=== PATIENT | male | born 1955 | race Caucasian/White ===

== ENCOUNTER 2017-03-20 11:00 | Inpatient (IN) | payer MEDICARE, MEDICAID ==
--- NOTE | 2017-03-20 11:20 | ED Physician Chart ---
Chief Complaint/HPI - Patient Information Date Seen:: 03/20/17 Time Seen:: 11:04 Chief Complaint:: shortness of breath History of Present Illness:: 61-year-old male, history of HIV/AIDS, complains of acute, worsening, constant, moderate to severe, shortness of breath 5 days. Has associated cough and subjective fever. Denies numbness, tingling, abdominal pain, chest pain with palpitations, nausea, vomiting, diarrhea, gross hematuria, acute vision changes , headache. Allergies:: Allergies Allergy/AdvReac Type Severity Reaction Status Date / Time No Known Allergies Allergy Verified 03/20/17 11:19 Historian:: Patient Review:: Nurse's Note Reviewed Review of Systems - Review of Systems Other: Complete system review otherwise unremarkable except as noted in history of present illness. Past Medical History - Past Medical History Past Medical History: Other (HIV) Family History: None Social History: Non Smoker, No Alcohol, No Drug Use, Other Surgical History: None Psychiatricy History: None Medication: Reviewed Family Medical History - Family Member Father History Unknown: Yes Mother History Unknown: Yes Ethnicity: Non- Living Status: Hx Family Cancer: No Hx Family Coronary Artery Disease: No Hx Family Congestive Heart Failure: No Hx Family Hypertension: No Hx Family Stroke: No Hx Family Diabetes: Yes Hx Family Seizures: No Hx Family Dementia: No Hx Family AIDS: No Hx Family HIV: No Hx Family COPD: No Hx Family Hepatitis: No Hx Family Psychiatric Problems: No Hx Family Tuberculosis: No Physical Exam - Physical Examination Other:: INITIAL VITAL SIGNS: Reviewed by me GENERAL: Alert and interactive. No acute distress HEAD: Head is normocephalic and atraumatic EYES: EOMI. PERRL. No scleral icterus. No conjunctival injection ENT: Moist mucous membranes. NECK: Supple. No masses. Full range of motion RESPIRATORY: No tachypnea. Right middle lobe rhonchi. CV: Regular rate and rhythm. No murmurs, rubs, or gallops ABDOMEN: Soft, non-distended, non-tender. No guarding. No rebound. No masses. EXTREMITIES: No deformity. No cyanosis. No edema. SKIN: Warm and dry. No obvious rashes. NEUROLOGIC: Alert and oriented. Face is symmetric. Speech is normal. Moves all extremities equally. Motor and sensory distally intact. Labs/Radiology/EKG Results - Lab Results Results: Lab Results 03/20/17 03/20/17 03/20/17 Range/Units 11:41 11:41 11:41 WBC 5.2 D (4.8-10.8) Th/cmm RBC 4.13 L (4.30-5.70) Mil/cmm Hgb 12.3 L (13.2-17.3) gm/dL Hct 36.9 L D (39.0-49.0) % MCV 89.3 (80-99) fl MCH 29.7 (26.0-30.0) pg MCHC Differential 33.2 (28.0-36.0) pg RDW 14.8 (11.5-20.0) % Plt Count 130 L D (150-400) Th/cmm MPV 7.6 fl Neutrophils % 75.6 (40.0-80.0) % Lymphocytes % 15.7 L (20.0-50.0) % Monocytes % 7.6 (2.0-10.0) % Eosinophils % 0.6 (0.0-5.0) % Basophils % 0.5 (0.0-2.0) % Sodium 125 L (136-145) mEq/L Potassium 3.4 L (3.5-5.1) mEq/L Chloride 94 L (98-107) mEq/L Carbon Dioxide 27.2 (21.0-31.0) mEq/L Anion Gap 7.2 (7.0-16.0) BUN 26 H (7-25) mg/dL Creatinine 0.7 (0.7-1.3) mg/dL Est GFR ( Amer) > 60.0 (>90) ml/min Est GFR (Non-Af Amer) > 60.0 ml/min BUN/Creatinine Ratio 37.1 Glucose 91 (70-105) mg/dL Whole Bld Lactic Acid 1.05 (0.60-1.99) mmol/L Calcium 9.0 (8.6-10.3) mg/dL Total Bilirubin 0.7 (0.3-1.0) mg/dL AST 33 (13-39) U/L ALT 20 (7-52) U/L Alkaline Phosphatase 66 (34-104) U/L Total Protein 8.1 (6.0-8.3) gm/dL Albumin 3.0 L (4.2-5.5) gm/dL Globulin 5.1 gm/dL Albumin/Globulin Ratio 0.6 L (1.0-1.8) - Radiology Results Results: Single AP VIEW Portable Chest X-ray was interpreted independently and contemporaneously by Brit Tao MD: No cardiomegaly Normal mediastinum Right middle lobe infiltrates No pneumothorax No soft tissue or bony abnormalities - EKG Interpretations Comments:: 12-lead EKG Interpretation by Brit Tao MD: Normal Sinus Rhythm with ventricular rate of 98 beats per minute Normal axis Borderline shortened OR interval otherwise normal intervals No acute ST or T wave changes. No obvious STEMI Assessment - Assessment General Assessment: Critical Care Time: 30 minutes Treatments/Evaluations: Close monitoring and treatment of unstable vital signs, cardiorespiratory, and neurologic status, while maintaining tight balance of fluid, respiratory, and cardiac interventions. This time includes discussing the case with the patient and the patient's family. This time does not include all procedures stated elsewhere in this record. This time also includes reviewing old records, labs and radiological studies. This time includes examining and re-examining the patient. Additionally, this time also includes arranging care with admitting and consulting physicians. Critical Care Time: 30 minutes Excludes all billable procedures: Yes This condition life threatening/high prob of deterioration: Yes ED Septic Shock - . Is Septic Shock (SBP<90, OR Lactate>4 mmol\L) present?: No Reassessment (Disposition) - Reassessment Reassessment:: This is a 61-year-old male with history of AIDS. Presents with acute, worsening shortness of breath 1 week. X-ray consistent with right middle lobe pneumonia. Patient's blood pressure was borderline systolic 90 mmHg. His white blood cell count and lactic acid levels were within normal limits. However his heart rate was about 90 bpm and his temperature was slightly elevated at 99.9F. Patient is septic with right middle lobe pneumonia. He did receive 1.5 L of IV saline here in the ER. Also received IV antibiotics. He also received Solu-Medrol and breathing treatment. His shortness of breath did improve. Given his comorbidities of AIDS he will need admission for further workup and treatment. Discussed with admitting physician. Patient benefited further workup and treatment. Reassessment Condition:: Improved - Diagnosis Diagnosis:: Sepsis, right middle lobe pneumonia AIDS - Patient Disposition Discharge/Transfer:: Acute Care w/in this hosp Admitted to:: Telemetry Admitting Medical Physician:: Darrell Jo Time:: 12:34 Condition at Disposition:: Stable ED Discharge Plan - Patient Disposition Admit/Discharge/Transfer: Acute Care w/in this hosp
[2017-03-20] MEDS ORDERED: Albuterol/Ipratropium Neb 3 ML AERS HHN ONE ×2 (11:21→11:33)
[2017-03-20] MEDS ORDERED: Dexamethasone Sodium Phos 4 mg/mL Vial IVP STA (11:22)
[2017-03-20] MEDS ORDERED: Dexamethasone Sodium Phos 10 mg/mL PF Vial ONE (11:28)
[2017-03-20 11:59] LABS: % BASOPHILS 0.5 % (0.0-2.0); % EOSINOPHILS 0.6 % (0.0-5.0); % LYMPHOCYTES 15.7 % (20.0-50.0); % MONOCYTES 7.6 % (2.0-10.0); % NEUTROPHILS 75.6 % (40.0-80.0); HEMATOCRIT 36.9 % (39.0-49.0); HEMOGLOBIN 12.3 gm/dL (13.2-17.3); MEAN CELL VOLUME 89.3 fl (80-99); MEAN CORPUSCULAR HEMOGLOBIN 29.7 pg (26.0-30.0); MEAN CORPUSCULAR HGB CONC 33.2 pg (28.0-36.0); MEAN PLATELET VOLUME 7.6 fl; PLATELET COUNT 130 Th/cmm (150-400); RED BLOOD COUNT 4.13 Mil/cmm (4.30-5.70); RED CELL DISTRIBUTION WIDTH 14.8 % (11.5-20.0)
[2017-03-20 12:02] LABS: WHITE BLOOD COUNT 5.2 Th/cmm (4.8-10.8)
--- NOTE | 2017-03-20 12:02 | Diagnostic Imaging Report ---
CHEST X-RAY: AP view INDICATION: pain COMPARISON: None FINDINGS: Extensive right mid lung infiltrate and consolidation is noted. Chronic changes are seen with areas of subsegmental atelectasis versus scarring. Heart size is normal. Spinal scoliosis is noted with rightward convexity of the thoracic spine. IMPRESSION: Extensive right mid lung infiltrates and consolidative changes. Follow-up is recommended to ensure resolution.
[2017-03-20 12:17] LABS: INR 0.91 (0.5-1.4); PROTHROMBIN TIME (TEST) 9.5 SECONDS (9.5-11.5)
[2017-03-20 12:20] LABS: ALB/GLOB RATIO 0.6 (1.0-1.8); ALKALINE PHOSPHATASE 66 U/L (34-104); ANION GAP 7.2 (7.0-16.0); BILIRUBIN,TOTAL 0.7 mg/dL (0.3-1.0); BUN - UREA NITROGEN 26 mg/dL (7-25); BUN/CREATININE RATIO 37.1; CARBON DIOXIDE 27.2 mEq/L (21.0-31.0); CHLORIDE 94 mEq/L (98-107); CREATININE - SERUM 0.7 mg/dL (0.7-1.3); GLUCOSE 91 mg/dL (70-105); POTASSIUM SERUM 3.4 mEq/L (3.5-5.1); SGOT 33 U/L (13-39); SGPT/ALT 20 U/L (7-52); SODIUM SERUM 125 mEq/L (136-145); TROP I 0.01 ng/mL (0.01-0.05)
[2017-03-20] MEDS ORDERED: Sodium Chloride 0.9% 1,000 ML IV ONE (12:27)
[2017-03-20] MEDS ORDERED: Sodium Chloride 0.9% 500 ML IV ONE (12:28)
[2017-03-20] MEDS ORDERED: cefTRIAXone 1 GM in Sodium Chloride 0.9% 50 ML IV ONE (12:39)
[2017-03-20] MEDS: Azithromycin 500 MG in Sodium Chloride 0.9% 250 ML IV SCH (17:21)
[2017-03-20] MEDS: Sodium Chloride 0.9% 1,000 ML IV SCH (17:26)
--- NOTE | 2017-03-20 22:29 | Admit Criteria Form ---
Admit Criteria Forms - Admit Criteria Diagnosis: PNEUMONIA, COMMUNITY ACQUIRED Clinical Indications for Admission to Inpatient Care (Place ' X' for any and all applicable criteria): Admission to inpatient status for two midnights or more is indicated for ANY ONE of the following (1)(2)(3): [ ]I. Hypoxia [ ]II. Hemodynamic instability [ ]III. Altered mental status that is severe or persistent [ ]IV. Dehydration that is severe or persistent. [ ]V. Bacteremia [ ]. Moderate-risk or high-risk category patients (Pneumonia Severity Index ( PSI) class IV or V, or CURB-65 score of 3 or greater). [ ]VII. Intermediate-risk category patients (e.g., PSI class III or CURB-65 score 2) who do not improve with outpatient and observation care treatment [ ]VIII. Outpatient treatment failure as indicated by 1 or more of the following(9): [ ]a) Failure to respond to antibiotic (eg, resistant organism) [ ]b) Clinically significant adverse effects from medication (eg, vomiting) [ ]c) Complications of pneumonia (eg, empyema, bacteremia) [ ]d) Significant worsening of comorbid cond necessitating inpatient care (eg, chronic heart failure) [ ]IX. Appropriate diagnostic testing and treatment unavailable in outpatient or recovery facility (eg, testing or infection control measures unavailable) [ ]X. Respiratory finding (eg. tachypnea) that do not respond to outpatient observation care treatment [ ]XI. Complicated pleural effusions (eg, emphysema, exudative, loculated) [X ]XII. Immunocompromised patients (e.g., AIDS, chronic steroid use) at moderate or high risk based on clinical evaluation. Extended stay beyond goal length of stay may be needed for (20) [ ]a) Unclear diagnosis [ ]b) Pleural disease [ ]c) Severe pneumonia or treatment failure [ ]d) Respiratory failure [ ]e) New onset hyponatremia (serum Na concentration less than 135 mEq/L(mmol/ L) [ ]f) Clinically significant comorbid illness (eg, heart failure, atrial fibrillation with rapid heart rate, alcohol withdrawal, renal insufficiency)(34)(35) [ ]g) Comorbid acute exacerbation of COPD(36) [ ]h) Concomitant diagnosis of malignancy [ ]i) Concomitant altered mental status [ ]j) Culture-identified Gram-negative or antibiotic-resistant organism (eg, Pseudomonas, methicillin-resistant Staphylococcus aureus MRSA)(30) [ ]k) Healthcare-associated pneumonia (36) The original [facility] [employer] content created by [facility] has been revised. The portions of the content which have been revised are identified through the use of italic text or in bold, and [facility] has neither reviewed nor approved the modified material. All other unmodified content is copyright [facility]. Please see references footnoted in the original [facility] edition 2017 Admit Criteria Met?: Yes
[2017-03-21] MEDS: Sodium Chloride 0.9% 1,000 ML IV SCH ×3 (00:25→12:06)
[2017-03-21 01:34] LABS: URINE BILIRUBIN NEGATIVE (NEGATIVE); URINE COLOR YELLOW; URINE GLUCOSE (UA) NEGATIVE (NEGATIVE)
[2017-03-21 01:35] LABS: URINE BLOOD TRACE (NEGATIVE); URINE KETONE 15 mg/dL (NEGATIVE); URINE PROTEIN TRACE mg/dL (NEGATIVE)
[2017-03-21 01:36] LABS: URINE BACTERIA NONE SEEN /hpf (NONE SEEN); URINE EPITHELIAL CELLS NONE SEEN /lpf (FEW); URINE RBC 0-2 /hpf (0-5); URINE WBC NONE SEEN /hpf (0-5)
--- NOTE | 2017-03-21 02:44 | Consultation ---
Consult Note - Consult Note Service Date: 03/20/17 Consult Note: PHYSICIAN Consultation Note: Date of Admission: 03/20/17 Purpose of Consultation: Chief Complaint: Patient JACKIE STEWART JR was admitted to location Medical[facility] Unit I with PNA, SEPSIS, IMMUNO COMPROMISE. History of Present Illness: 61 y male with h/o HIV presented to the ER for cough and congestion for last 5 days, it was associated with shortness of breath. CXR revealed RML pneumonia. rocephin and Zithromax were started. He stated he had stopped taking his medications in sep 2016, as he could not she his HIV physician. He was hypoxic on presentation. Past Medical History: HIV. Allergies Allergy/AdvReac Type Severity Reaction Status Date / Time No Known Allergies Allergy Verified 03/20/17 11:19 Vital Signs Temp 97.5 F 03/21/17 00:00 Pulse 71 03/21/17 00:00 Resp 20 03/21/17 00:00 BP 123/52 03/21/17 00:00 Pulse Ox 91 03/21/17 00:00 Intake & Output 03/20/17 03/20/17 03/21/17 06:59 18:59 06:59 Intake Total 300 948.333 Output Total 300 Balance 0 948.333 Weight (lbs) 43.998 kg Intake: Intake, IV Amount 948.333 Azithromycin 500 mg In 250 Sodium Chloride 0.9% 250 ml @ 250 mls/hr IV Q24HR NAYE Rx#:[id number] Sodium Chloride 0.9% 1, 698.333 000 ml @ 100 mls/hr IV . Q10H NAYE Rx#:[id number] Oral 300 Output: Urine 300 Other: # Voids 2 # Bowel Movements 0 Laboratory Results - last 24 hr 03/21/17 01:15 Urine Source CLEAN C Urine Color YELLOW Urine Clarity CLEAR Urine pH 6.0 Ur Specific [place] 1.020 Urine Protein TRACE Urine Glucose (UA) NEGATIVE Urine Ketones 15 H Urine Blood TRACE Urine Nitrate NEGATIVE Urine Bilirubin NEGATIVE Urine Urobilinogen 4.0 H Ur Leukocyte Esterase NEGATIVE Urine RBC 0-2 H Urine WBC NONE SEEN Ur Epithelial Cells NONE SEEN Urine Bacteria NONE SEEN Home Medication Medication Instructions Recorded Type Sulfamethoxazole/Trimethopri 1 tab PO DAILY 11/08/14 History [Bactrim Ds 800 mg-160 mg*] Tenofovir Disoproxil Fumarate 300 mg PO DAILY 11/08/14 History [Viread] Current Medications Generic Name Dose Route Start Last Admin Trade Name Fretaylor PRN Reason Stop Dose Admin Azithromycin 500 mg/ Sodium 250 mls @ 250 mls/hr 03/20/17 15:47 03/20/17 19: 18 Chloride IV 05/19/17 15:46 Infused Q24HR NAYE Infusion Ceftriaxone Sodium 1 gm/ 50 mls @ 100 mls/hr 03/20/17 15:47 Sodium Chloride IV 05/19/17 15:46 Q24HR NAYE Sodium Chloride 1,000 mls @ 100 mls/hr 03/20/17 15:53 03/21/17 00:25 Nacl 0.9% IV 05/19/17 15:52 100 mls/hr .Q10H NAYE Administration Review of Systems: A 12 point ROS was reviewed with the pertinent positive and negatives noted in the HPI. Social History Smoking Status Former smoker Drug Use No Alcohol Use No Family Medical History Family Medical History Start: 03/20/17 15: 10 Freq: ONCE Status: Active Document 03/20/17 15:10 [employer] (Rec: 03/20/17 18:05 [facility] [id number] ) Family Medical History Mother Name: MIKAL QUEVEDO Living Status Hx Family Cancer No Hx Family Coronary Artery Disease No Hx Family Congestive Heart Failure No Hx Family Hypertension No Hx Family Stroke No Hx Family Diabetes Yes Hx Family Seizures No Hx Family Dementia No Hx Family AIDS No Hx Family HIV No Hx Family COPD No Hx Family Hepatitis No Hx Family Psychiatric Problems No Hx Family Tuberculosis No Father History Unknown Yes Physical Exam: General: Cachectic. No Acute Distress HEENT: EOMI Bilaterally, PERRLA Bilaterally, Head is normocephalic, atraumatic on inspection. Cardio: +S1/S2 Auscultated, RRR, no murmurs/rubs/gallops noted Respiratory:Crackles present on the right. Abdominal: Soft, Nondistended, Nontender to palpation x 4 quadrants Genital/Urinary: Extremities: No Edema noted in the lower extremities Neurological: Alert and Oriented x3, Cranial Nerves II-XII intact bilaterally, Gait Steady, No Focal Deficits noted. Assessment/Plan: 1. HIV. Advanced as he was on bactrim po for prophylaxis). He cannot recall his meds and t cell count or hiv viral load. 2. Pneumonia. r/o TB, r/o PCP ( he was on bactrim prophylaxis) 3. Protein Calorie malnutrition. 4. Respiratory insuffiiency. Abx, rocephin, zithromax. Add bactrim IV. please see CPOE. transfer to the TELE and airborne isolation. Prognosis is guarded. Signed, Héctor Go M.D. 229
[2017-03-21] MEDS: DEXTROSE IV SCH ×2 (04:12→08:52)
[2017-03-21] MEDS: SULFAMETHOXAZOLE IV SCH ×2 (04:12→08:52)
[2017-03-21] MEDS: TMP IV SCH ×2 (04:12→08:52)
[2017-03-21] MEDS ORDERED: [UNRECOGNIZED DRUG - OTHER] IV SCH (05:00)
[2017-03-21] MEDS ORDERED: SULFAMETHOXAZOLE IV SCH (05:00)
[2017-03-21] MEDS ORDERED: TRIMETHOPRIM IV SCH (05:00)
[2017-03-21 05:07] LABS: HCO3 24.4 mEq/L (20.0-26.0); pH 7.44 (7.35-7.45)
[2017-03-21 05:08] LABS: ABG SOURCE Arterial; ALLEN TEST P; BE(B) -0.6 mEq/L (-3.0-3.0); FIO2 21
--- NOTE | 2017-03-21 10:29 | Diagnostic Imaging Report ---
CHEST X-RAY: AP view INDICATION: Pneumonia COMPARISON: 03/20/2017 FINDINGS: Extensive right lung consolidative changes are seen involving the right upper lobe. Additional few patchy infiltrates are also noted. Left basal subsegmental atelectasis versus scarring is noted. Heart size is normal. IMPRESSION: Extensive right lung consolidative changes with additional superimposed infiltrates. Clinical correlation and follow-up is to ensure recommended to ensure resolution and rule out underlying neoplastic process.
[2017-03-21] MEDS: cefTRIAXone 1 GM in Sodium Chloride 0.9% 50 ML IV SCH ×2 (15:30→17:29)
--- NOTE | 2017-03-21 16:50 | History and Physical ---
History of Present Illness - HPI Chief Complaint: pt c/o increse weakness HPI: grsdual loss of appetite decrese in wt incresing sob Vital Signs: Last Vital Signs Temp 98.3 F 03/21/17 16:00 Pulse 72 03/21/17 16:00 Resp 19 03/21/17 16:00 BP 116/51 03/21/17 16:00 Pulse Ox 96 03/21/17 16:00 Past Medical History Cardiovascular: Report: Other (h/o hiv) Pulmonary: Report: No Pertinent Hx [employer]: Report: No Pertinent Hx, Peripheral neuropathy GI: Report: No Pertinent Hx Psych: Report: No Pertinent Hx, Anxiety Musculoskeletal: Report: No Pertinent Hx Rheumatologic: Report: No pertinent Hx Infectious Disease: Report: No Pertinent Hx Renal/: Report: No Pertinent Hx Endocrine: Report: No Pertinent Hx Dermatology: Report: No Pertinent Hx - Past Surgical History Past Surgical History: No pertinent Hx Family Medical History - Family Member Father Hx Family Cancer: No Hx Family Congestive Heart Failure: No Hx Family Hypertension: No Mother History Unknown: Yes Name:: MIKAL QUEVEDO Ethnicity: Non- Living Status: Hx Family Cancer: No Hx Family Coronary Artery Disease: No Hx Family Congestive Heart Failure: No Hx Family Hypertension: No Hx Family Stroke: No Hx Family Diabetes: Yes Hx Family Seizures: No Hx Family Dementia: No Hx Family AIDS: No Hx Family HIV: No Hx Family COPD: No Hx Family Hepatitis: No Hx Family Psychiatric Problems: No Hx Family Tuberculosis: No Social History Smoke: 1 pack per day, Quit Alcohol: Occassional Drugs: None Lives: Alone Domestic Violence: Negative Health Maintenance Health Maintenance: HIV (on bactrim and antiviral) - Medications Home Medications: Home Medication Medication Instructions Recorded Type Sulfamethoxazole/Trimethopri 1 tab PO DAILY 11/08/14 History [Bactrim Ds 800 mg-160 mg*] Tenofovir Disoproxil Fumarate 300 mg PO DAILY 11/08/14 History [Viread] - Allergies Allergies/Adverse Reactions: Allergies Allergy/AdvReac Type Severity Reaction Status Date / Time No Known Allergies Allergy Verified 03/20/17 11:19 Review of Systems - Review of Systems Constitutional: Report: Fever, Weakness Eyes: Denies: Pain, Vision Change, Conjunctivae Inflammation, Eyelid Inflammation, Redness, Other Respiratory: Report: Cough, Sputum, Wheezing Cardiovascular: Report: Chest Pain Gastrointestinal: Denies: Diarrhea Musculoskeletal: Report: Neck Pain, Shoulder Pain, Back Pain Skin: Denies: Lesions Neurological: Report: Weakness, Numbness, Incoordination Physical Exam - Physical Exam HEENT: Report: Ears Nose Throat Within Normal Limits Respiratory: Report: Clear to Auscultation of lung keenan, Breath Sounds are within normal limits Abdomen: Report: Bowel Sounds are within normal limits Back: Report: Inspection of back is within normal limits. Neuro/Psych: Report: CN II-XII intact - Lab Results All Lab Results last 24 hours: Laboratory Last Values WBC 5.2 Th/cmm (4.8-10.8) D 03/20/17 11:41 RBC 4.13 Mil/cmm (4.30-5.70) L 03/20/17 11:41 Hgb 12.3 gm/dL (13.2-17.3) L 03/20/17 11:41 Hct 36.9 % (39.0-49.0) L D 03/20/17 11:41 MCV 89.3 fl (80-99) 03/20/17 11:41 MCH 29.7 pg (26.0-30.0) 03/20/17 11:41 MCHC Differential 33.2 pg (28.0-36.0) 03/20/17 11:41 RDW 14.8 % (11.5-20.0) 03/20/17 11:41 Plt Count 130 Th/cmm (150-400) L D 03/20/17 11:41 MPV 7.6 fl 03/20/17 11:41 Neutrophils % 75.6 % (40.0-80.0) 03/20/17 11:41 Lymphocytes % 15.7 % (20.0-50.0) L 03/20/17 11:41 Monocytes % 7.6 % (2.0-10.0) 03/20/17 11:41 Eosinophils % 0.6 % (0.0-5.0) 03/20/17 11:41 Basophils % 0.5 % (0.0-2.0) 03/20/17 11:41 PT 9.5 SECONDS (9.5-11.5) 03/20/17 11:41 INR 0.91 (0.5-1.4) 03/20/17 11:41 PTT (Actin FS) 32.1 SECONDS (26.0-38.0) 03/20/17 11:41 Specimen Source Arterial 03/21/17 06:00 Sample Site R-R 03/21/17 06:00 pH 7.44 (7.35-7.45) 03/21/17 06:00 pCO2 34.0 mmHg (35.0-45.0) L 03/21/17 06:00 pO2 82.0 mmHg (80.0-100.0) 03/21/17 06:00 HCO3 24.4 mEq/L (20.0-26.0) 03/21/17 06:00 Base Excess -0.6 mEq/L (-3.0-3.0) 03/21/17 06:00 O2 Saturation 96.0 % (92.0-100.0) 03/21/17 06:00 Jovan Test P 03/21/17 06:00 Vent Rate NA 03/21/17 06:00 Inspired O2 21 03/21/17 06:00 Tidal Volume NA 03/21/17 06:00 PEEP NA 03/21/17 06:00 Pressure (ins/psv/peep) NA 03/21/17 06:00 Critical Value RPINEIRA 03/21/17 06:00 Sodium 125 mEq/L (136-145) L 03/20/17 11:41 Potassium 3.4 mEq/L (3.5-5.1) L 03/20/17 11:41 Chloride 94 mEq/L (98-107) L 03/20/17 11:41 Carbon Dioxide 27.2 mEq/L (21.0-31.0) 03/20/17 11:41 Anion Gap 7.2 (7.0-16.0) 03/20/17 11:41 BUN 26 mg/dL (7-25) H 03/20/17 11:41 Creatinine 0.7 mg/dL (0.7-1.3) 03/20/17 11:41 Est GFR ( Amer) > 60.0 ml/min (>90) 03/20/17 11:41 Est GFR (Non-Af Amer) > 60.0 ml/min 03/20/17 11:41 BUN/Creatinine Ratio 37.1 03/20/17 11:41 Glucose 91 mg/dL (70-105) 03/20/17 11:41 Whole Bld Lactic Acid 1.05 mmol/L (0.60-1.99) 03/20/17 11:41 Calcium 9.0 mg/dL (8.6-10.3) 03/20/17 11:41 Total Bilirubin 0.7 mg/dL (0.3-1.0) 03/20/17 11:41 AST 33 U/L (13-39) 03/20/17 11:41 ALT 20 U/L (7-52) 03/20/17 11:41 Alkaline Phosphatase 66 U/L (34-104) 03/20/17 11:41 Lactate Dehydrogenase 99 U/L (140-271) L 03/21/17 06:15 Troponin I 0.01 ng/mL (0.01-0.05) 03/20/17 11:41 B-Natriuretic Peptide 40.0 pg/mL (5.0-100.0) 03/20/17 11:41 Total Protein 8.1 gm/dL (6.0-8.3) 03/20/17 11:41 Albumin 3.0 gm/dL (4.2-5.5) L 03/20/17 11:41 Globulin 5.1 gm/dL 03/20/17 11:41 Albumin/Globulin Ratio 0.6 (1.0-1.8) L 03/20/17 11:41 Urine Source CLEAN C 03/21/17 01:15 Urine Color YELLOW 03/21/17 01:15 Urine Clarity CLEAR (CLEAR) 03/21/17 01:15 Urine pH 6.0 03/21/17 01:15 Ur Specific [place] 1.020 (1.005-1.030) 03/21/17 01:15 Urine Protein TRACE mg/dL (NEGATIVE) 03/21/17 01:15 Urine Glucose (UA) NEGATIVE mg/dL (NEGATIVE) 03/21/17 01:15 Urine Ketones 15 mg/dL (NEGATIVE) H 03/21/17 01:15 Urine Blood TRACE (NEGATIVE) 03/21/17 01:15 Urine Nitrate NEGATIVE (NEGATIVE) 03/21/17 01:15 Urine Bilirubin NEGATIVE (NEGATIVE) 03/21/17 01:15 Urine Urobilinogen 4.0 E.U./dL (0.2 - 1.0) H 03/21/17 01:15 Ur Leukocyte Esterase NEGATIVE (NEGATIVE) 03/21/17 01:15 Urine RBC 0-2 /hpf (0-5) H 03/21/17 01:15 Urine WBC NONE SEEN /hpf (0-5) 03/21/17 01:15 Ur Epithelial Cells NONE SEEN /lpf (FEW) 03/21/17 01:15 Urine Bacteria NONE SEEN /hpf (NONE SEEN) 03/21/17 01:15 HIV 1&2 Antibody Screen POSITIVE (NEG) H 03/21/17 06:15 Laboratory Results - last 24 hr 03/21/17 03/21/17 03/21/17 01:15 06:00 06:15 Specimen Source Arterial Sample Site R-R pH 7.44 pCO2 34.0 L pO2 82.0 HCO3 24.4 Base Excess -0.6 O2 Saturation 96.0 Jovan Test P Vent Rate NA Inspired O2 21 Tidal Volume NA PEEP NA Pressure (ins/psv/peep) NA Critical Value RPINEIRA Lactate Dehydrogenase 99 L Urine Source CLEAN C Urine Color YELLOW Urine Clarity CLEAR Urine pH 6.0 Ur Specific [place] 1.020 Urine Protein TRACE Urine Glucose (UA) NEGATIVE Urine Ketones 15 H Urine Blood TRACE Urine Nitrate NEGATIVE Urine Bilirubin NEGATIVE Urine Urobilinogen 4.0 H Ur Leukocyte Esterase NEGATIVE Urine RBC 0-2 H Urine WBC NONE SEEN Ur Epithelial Cells NONE SEEN Urine Bacteria NONE SEEN HIV 1&2 Antibody Screen 03/21/17 06:15 Specimen Source Sample Site pH pCO2 pO2 HCO3 Base Excess O2 Saturation Jovan Test Vent Rate Inspired O2 Tidal Volume PEEP Pressure (ins/psv/peep) Critical Value Lactate Dehydrogenase Urine Source Urine Color Urine Clarity Urine pH Ur Specific [place] Urine Protein Urine Glucose (UA) Urine Ketones Urine Blood Urine Nitrate Urine Bilirubin Urine Urobilinogen Ur Leukocyte Esterase Urine RBC Urine WBC Ur Epithelial Cells Urine Bacteria HIV 1&2 Antibody Screen POSITIVE H - Assessment Assessment: hiv active on bacrim pnumonia malnutrition resp insufficeincy - Plan Plan: as per id
[2017-03-21] MEDS: Azithromycin 500 MG in Sodium Chloride 0.9% 250 ML IV SCH (17:26)
--- NOTE | 2017-03-21 21:26 | Infectious Disease Prog Note ---
Infectious Disease Subjective - Review of Systems Service Date: 03/21/17 Events since last encounter: None. Subjective: Comfortable,not in distress. Infectious Disease Objective - Results Result Diagrams: 03/20/17 11:41 03/20/17 11:41 Recent Labs: Laboratory Last Values WBC 5.2 Th/cmm (4.8-10.8) D 03/20/17 11:41 RBC 4.13 Mil/cmm (4.30-5.70) L 03/20/17 11:41 Hgb 12.3 gm/dL (13.2-17.3) L 03/20/17 11:41 Hct 36.9 % (39.0-49.0) L D 03/20/17 11:41 MCV 89.3 fl (80-99) 03/20/17 11:41 MCH 29.7 pg (26.0-30.0) 03/20/17 11:41 MCHC Differential 33.2 pg (28.0-36.0) 03/20/17 11:41 RDW 14.8 % (11.5-20.0) 03/20/17 11:41 Plt Count 130 Th/cmm (150-400) L D 03/20/17 11:41 MPV 7.6 fl 03/20/17 11:41 Neutrophils % 75.6 % (40.0-80.0) 03/20/17 11:41 Lymphocytes % 15.7 % (20.0-50.0) L 03/20/17 11:41 Monocytes % 7.6 % (2.0-10.0) 03/20/17 11:41 Eosinophils % 0.6 % (0.0-5.0) 03/20/17 11:41 Basophils % 0.5 % (0.0-2.0) 03/20/17 11:41 PT 9.5 SECONDS (9.5-11.5) 03/20/17 11:41 INR 0.91 (0.5-1.4) 03/20/17 11:41 PTT (Actin FS) 32.1 SECONDS (26.0-38.0) 03/20/17 11:41 Specimen Source Arterial 03/21/17 06:00 Sample Site R-R 03/21/17 06:00 pH 7.44 (7.35-7.45) 03/21/17 06:00 pCO2 34.0 mmHg (35.0-45.0) L 03/21/17 06:00 pO2 82.0 mmHg (80.0-100.0) 03/21/17 06:00 HCO3 24.4 mEq/L (20.0-26.0) 03/21/17 06:00 Base Excess -0.6 mEq/L (-3.0-3.0) 03/21/17 06:00 O2 Saturation 96.0 % (92.0-100.0) 03/21/17 06:00 Jovan Test P 03/21/17 06:00 Vent Rate NA 03/21/17 06:00 Inspired O2 21 03/21/17 06:00 Tidal Volume NA 03/21/17 06:00 PEEP NA 03/21/17 06:00 Pressure (ins/psv/peep) NA 03/21/17 06:00 Critical Value RPINEIRA 03/21/17 06:00 Sodium 125 mEq/L (136-145) L 03/20/17 11:41 Potassium 3.4 mEq/L (3.5-5.1) L 03/20/17 11:41 Chloride 94 mEq/L (98-107) L 03/20/17 11:41 Carbon Dioxide 27.2 mEq/L (21.0-31.0) 03/20/17 11:41 Anion Gap 7.2 (7.0-16.0) 03/20/17 11:41 BUN 26 mg/dL (7-25) H 03/20/17 11:41 Creatinine 0.7 mg/dL (0.7-1.3) 03/20/17 11:41 Est GFR ( Amer) > 60.0 ml/min (>90) 03/20/17 11:41 Est GFR (Non-Af Amer) > 60.0 ml/min 03/20/17 11:41 BUN/Creatinine Ratio 37.1 03/20/17 11:41 Glucose 91 mg/dL (70-105) 03/20/17 11:41 Whole Bld Lactic Acid 1.05 mmol/L (0.60-1.99) 03/20/17 11:41 Calcium 9.0 mg/dL (8.6-10.3) 03/20/17 11:41 Total Bilirubin 0.7 mg/dL (0.3-1.0) 03/20/17 11:41 AST 33 U/L (13-39) 03/20/17 11:41 ALT 20 U/L (7-52) 03/20/17 11:41 Alkaline Phosphatase 66 U/L (34-104) 03/20/17 11:41 Lactate Dehydrogenase 99 U/L (140-271) L 03/21/17 06:15 Troponin I 0.01 ng/mL (0.01-0.05) 03/20/17 11:41 B-Natriuretic Peptide 40.0 pg/mL (5.0-100.0) 03/20/17 11:41 Total Protein 8.1 gm/dL (6.0-8.3) 03/20/17 11:41 Albumin 3.0 gm/dL (4.2-5.5) L 03/20/17 11:41 Globulin 5.1 gm/dL 03/20/17 11:41 Albumin/Globulin Ratio 0.6 (1.0-1.8) L 03/20/17 11:41 Urine Source CLEAN C 03/21/17 01:15 Urine Color YELLOW 03/21/17 01:15 Urine Clarity CLEAR (CLEAR) 03/21/17 01:15 Urine pH 6.0 03/21/17 01:15 Ur Specific [place] 1.020 (1.005-1.030) 03/21/17 01:15 Urine Protein TRACE mg/dL (NEGATIVE) 03/21/17 01:15 Urine Glucose (UA) NEGATIVE mg/dL (NEGATIVE) 03/21/17 01:15 Urine Ketones 15 mg/dL (NEGATIVE) H 03/21/17 01:15 Urine Blood TRACE (NEGATIVE) 03/21/17 01:15 Urine Nitrate NEGATIVE (NEGATIVE) 03/21/17 01:15 Urine Bilirubin NEGATIVE (NEGATIVE) 03/21/17 01:15 Urine Urobilinogen 4.0 E.U./dL (0.2 - 1.0) H 03/21/17 01:15 Ur Leukocyte Esterase NEGATIVE (NEGATIVE) 03/21/17 01:15 Urine RBC 0-2 /hpf (0-5) H 03/21/17 01:15 Urine WBC NONE SEEN /hpf (0-5) 03/21/17 01:15 Ur Epithelial Cells NONE SEEN /lpf (FEW) 03/21/17 01:15 Urine Bacteria NONE SEEN /hpf (NONE SEEN) 03/21/17 01:15 HIV 1&2 Antibody Screen POSITIVE (NEG) H 03/21/17 06:15 - Physical Exam Vitals and I&O: Vital Signs Temp 97.9 F 03/21/17 20:00 Pulse 69 03/21/17 20:00 Resp 18 03/21/17 20:00 BP 104/56 03/21/17 20:00 Pulse Ox 95 03/21/17 20:00 Intake & Output 03/21/17 03/21/17 03/22/17 06:59 18:59 06:59 Intake Total 3998.674 0375 Balance 2236.296 2247 Weight (lbs) 44.089 kg 43.998 kg Intake: Intake, IV Amount 453.384 5413 Azithromycin 500 mg In 250 Sodium Chloride 0.9% 250 ml @ 250 mls/hr IV Q24HR [facility] Rx#:[id number] Sodium Chloride 0.9% 1, 914.718 4978 000 ml @ 100 mls/hr IV . Q10H [facility] Rx#:[id number] Sulfamethoxazole/TMP 14 264 ml In Dextrose 5% 250 ml @ 176 mls/hr IV Q8H [facility] Rx#:[id number] Oral 300 1000 Other: # Voids 3 3 # Bowel Movements 1 2 Active Medications: Current Medications Azithromycin 500 mg/ Sodium (Chloride) 250 mls @ 250 mls/hr IV Q24HR [facility] Stop: 05/19/17 15:46 Last Admin: 03/21/17 17:26 Dose: 100 mls/hr Ceftriaxone Sodium 1 gm/ (Sodium Chloride) 50 mls @ 100 mls/hr IV Q24HR [facility] Stop: 05/19/17 15:46 Last Admin: 03/21/17 15:30 Dose: 100 mls/hr Sodium Chloride (Nacl 0.9%) 1,000 mls @ 100 mls/hr IV .Q10H [facility] Stop: 05/19/17 15:52 Last Admin: 03/21/17 12:06 Dose: 100 mls/hr Trimethoprim/Sulfamethoxazole (14 ml/ Dextrose) 264 mls @ 176 mls/hr IV Q8H [facility] Stop: 05/20/17 03:59 Last Infusion: 03/21/17 11:00 Dose: Infused Miscellaneous (Sulfamethoxazole/Trimethopri [Bactrim Ds 800 Mg-160 Mg*]) 1 tab PO DAILY [facility] Stop: 05/21/17 08:59 Miscellaneous (Tenofovir Disoproxil Fumarate [Viread]) 300 mg PO DAILY [facility] Stop: 05/21/17 08:59 General: no acute distress, cachectic HEENT: atraumatic, normocephalic, PERRLA, EOMI, moist mucous membrane Neck: supple, no thyromegaly Cardiovascular: S1S2, regular, no systolic murmur, no thrills, no gallops Lungs: clear to percussion, crackles (on right ) Abdomen: soft, bowel sounds, no tender, no distended, no mass, no hepatomegaly, no splenomegaly, no ascites, no guarding Extremities: no cyanosis, no clubbing, no edema Neurological: awake, alert, oriented, CN 2-12 intact Skin: intact - Procedures Procedures: Procedures Procedure Code Date INSERT PICC CATH [id number] 11/08/14 VENOUS CATHETERIZATION NEC 38.93 11/08/14 Infectious Disease Assmt/Plan - Problem List Patient Problems: All Active Problems Flu-like symptoms (Acute) R68.89 PICC (peripherally inserted central catheter) removal (Acute) Z45.2 - Assessment Assessment: Assessment/Plan: 1. HIV. Advanced as he was on bactrim po for prophylaxis). He cannot recall his meds and t cell count or hiv viral load. 2. Pneumonia. r/o TB, r/o PCP ( he was on bactrim prophylaxis), CAP. Atypical pneumonia. 3. Protein Calorie malnutrition. 4. Respiratory insuffiiency. Abx, rocephin, zithromax. bactrim IV. Start IV fluid. please see CPOE. Prognosis is guarded.
[2017-03-21] MEDS ORDERED: Sodium Chloride 0.9% 1,000 ML IV SCH (21:31)
[2017-03-22] MEDS: DEXTROSE IV SCH ×4 (00:59→20:20)
[2017-03-22] MEDS: TMP IV SCH ×4 (00:59→20:20)
[2017-03-22] MEDS: SULFAMETHOXAZOLE IV SCH ×4 (00:59→20:20)
[2017-03-22] MEDS ORDERED: TRIMETHOPRIM PO SCH (09:00)
[2017-03-22] MEDS ORDERED: SULFAMETHOXAZOLE PO SCH (09:00)
[2017-03-22] MEDS ORDERED: [UNRECOGNIZED DRUG - OTHER] PO SCH (09:00)
[2017-03-22] MEDS ORDERED: TENOFOVIR DISOPROXIL FUMARATE 300 MG PO SCH (09:00)
--- NOTE | 2017-03-22 12:56 | General Progress Note ---
Subjective - Review of Systems Events since last encounter: patient in no distress Objective - Results Result Diagrams: 03/20/17 11:41 03/20/17 11:41 Recent Labs: Laboratory Last Values WBC 5.2 Th/cmm (4.8-10.8) D 03/20/17 11:41 RBC 4.13 Mil/cmm (4.30-5.70) L 03/20/17 11:41 Hgb 12.3 gm/dL (13.2-17.3) L 03/20/17 11:41 Hct 36.9 % (39.0-49.0) L D 03/20/17 11:41 MCV 89.3 fl (80-99) 03/20/17 11:41 MCH 29.7 pg (26.0-30.0) 03/20/17 11:41 MCHC Differential 33.2 pg (28.0-36.0) 03/20/17 11:41 RDW 14.8 % (11.5-20.0) 03/20/17 11:41 Plt Count 130 Th/cmm (150-400) L D 03/20/17 11:41 MPV 7.6 fl 03/20/17 11:41 Neutrophils % 75.6 % (40.0-80.0) 03/20/17 11:41 Lymphocytes % 15.7 % (20.0-50.0) L 03/20/17 11:41 Monocytes % 7.6 % (2.0-10.0) 03/20/17 11:41 Eosinophils % 0.6 % (0.0-5.0) 03/20/17 11:41 Basophils % 0.5 % (0.0-2.0) 03/20/17 11:41 PT 9.5 SECONDS (9.5-11.5) 03/20/17 11:41 INR 0.91 (0.5-1.4) 03/20/17 11:41 PTT (Actin FS) 32.1 SECONDS (26.0-38.0) 03/20/17 11:41 Specimen Source Arterial 03/21/17 06:00 Sample Site R-R 03/21/17 06:00 pH 7.44 (7.35-7.45) 03/21/17 06:00 pCO2 34.0 mmHg (35.0-45.0) L 03/21/17 06:00 pO2 82.0 mmHg (80.0-100.0) 03/21/17 06:00 HCO3 24.4 mEq/L (20.0-26.0) 03/21/17 06:00 Base Excess -0.6 mEq/L (-3.0-3.0) 03/21/17 06:00 O2 Saturation 96.0 % (92.0-100.0) 03/21/17 06:00 Jovan Test P 03/21/17 06:00 Vent Rate NA 03/21/17 06:00 Inspired O2 21 03/21/17 06:00 Tidal Volume NA 03/21/17 06:00 PEEP NA 03/21/17 06:00 Pressure (ins/psv/peep) NA 03/21/17 06:00 Critical Value RPINEIRA 03/21/17 06:00 Sodium 125 mEq/L (136-145) L 03/20/17 11:41 Potassium 3.4 mEq/L (3.5-5.1) L 03/20/17 11:41 Chloride 94 mEq/L (98-107) L 03/20/17 11:41 Carbon Dioxide 27.2 mEq/L (21.0-31.0) 03/20/17 11:41 Anion Gap 7.2 (7.0-16.0) 03/20/17 11:41 BUN 26 mg/dL (7-25) H 03/20/17 11:41 Creatinine 0.7 mg/dL (0.7-1.3) 03/20/17 11:41 Est GFR ( Amer) > 60.0 ml/min (>90) 03/20/17 11:41 Est GFR (Non-Af Amer) > 60.0 ml/min 03/20/17 11:41 BUN/Creatinine Ratio 37.1 03/20/17 11:41 Glucose 91 mg/dL (70-105) 03/20/17 11:41 Whole Bld Lactic Acid 1.05 mmol/L (0.60-1.99) 03/20/17 11:41 Calcium 9.0 mg/dL (8.6-10.3) 03/20/17 11:41 Total Bilirubin 0.7 mg/dL (0.3-1.0) 03/20/17 11:41 AST 33 U/L (13-39) 03/20/17 11:41 ALT 20 U/L (7-52) 03/20/17 11:41 Alkaline Phosphatase 66 U/L (34-104) 03/20/17 11:41 Lactate Dehydrogenase 99 U/L (140-271) L 03/21/17 06:15 Troponin I 0.01 ng/mL (0.01-0.05) 03/20/17 11:41 B-Natriuretic Peptide 40.0 pg/mL (5.0-100.0) 03/20/17 11:41 Total Protein 8.1 gm/dL (6.0-8.3) 03/20/17 11:41 Albumin 3.0 gm/dL (4.2-5.5) L 03/20/17 11:41 Globulin 5.1 gm/dL 03/20/17 11:41 Albumin/Globulin Ratio 0.6 (1.0-1.8) L 03/20/17 11:41 Urine Source CLEAN C 03/21/17 01:15 Urine Color YELLOW 03/21/17 01:15 Urine Clarity CLEAR (CLEAR) 03/21/17 01:15 Urine pH 6.0 03/21/17 01:15 Ur Specific [place] 1.020 (1.005-1.030) 03/21/17 01:15 Urine Protein TRACE mg/dL (NEGATIVE) 03/21/17 01:15 Urine Glucose (UA) NEGATIVE mg/dL (NEGATIVE) 03/21/17 01:15 Urine Ketones 15 mg/dL (NEGATIVE) H 03/21/17 01:15 Urine Blood TRACE (NEGATIVE) 03/21/17 01:15 Urine Nitrate NEGATIVE (NEGATIVE) 03/21/17 01:15 Urine Bilirubin NEGATIVE (NEGATIVE) 03/21/17 01:15 Urine Urobilinogen 4.0 E.U./dL (0.2 - 1.0) H 03/21/17 01:15 Ur Leukocyte Esterase NEGATIVE (NEGATIVE) 03/21/17 01:15 Urine RBC 0-2 /hpf (0-5) H 03/21/17 01:15 Urine WBC NONE SEEN /hpf (0-5) 03/21/17 01:15 Ur Epithelial Cells NONE SEEN /lpf (FEW) 03/21/17 01:15 Urine Bacteria NONE SEEN /hpf (NONE SEEN) 03/21/17 01:15 HIV 1&2 Antibody Screen POSITIVE (NEG) H 03/21/17 06:15 - Physical Exam Vitals and I&O: Vital Signs Temp 98.5 F 03/22/17 07:41 Pulse 81 03/22/17 07:41 Resp 17 03/22/17 12:00 BP 122/46 03/22/17 07:41 Pulse Ox 98 03/22/17 07:41 Intake & Output 03/21/17 03/22/17 03/22/17 18:59 06:59 18:59 Intake Total 2269 264 264 Balance 2269 264 264 Weight (lbs) 43.998 kg 46.04 kg Intake: Intake, IV Amount 1269 264 264 Sodium Chloride 0.9% 1, 1005 000 ml @ 100 mls/hr IV . Q10H [facility] Rx#:[id number] Sulfamethoxazole/TMP 14 264 264 264 ml In Dextrose 5% 250 ml @ 176 mls/hr IV Q8H [facility] Rx#:[id number] Oral 1000 Other: # Voids 3 # Bowel Movements 2 Active Medications: Current Medications Azithromycin 500 mg/ Sodium (Chloride) 250 mls @ 250 mls/hr IV Q24HR [facility] Stop: 05/19/17 15:46 Last Admin: 03/21/17 17:26 Dose: 100 mls/hr Ceftriaxone Sodium 1 gm/ (Sodium Chloride) 50 mls @ 100 mls/hr IV Q24HR [facility] Stop: 05/19/17 15:46 Last Admin: 03/21/17 15:30 Dose: 100 mls/hr Trimethoprim/Sulfamethoxazole (14 ml/ Dextrose) 264 mls @ 176 mls/hr IV Q8H [facility] Stop: 05/20/17 03:59 Last Admin: 03/22/17 12:44 Dose: 176 mls/hr Sodium Chloride (Nacl 0.9%) 1,000 mls @ 50 mls/hr IV .Q20H [facility] Stop: 05/20/17 21:30 Last Admin: 03/21/17 23:37 Dose: 50 mls/hr Miscellaneous (Tenofovir Disoproxil Fumarate [Viread]) 300 mg PO DAILY [facility] Stop: 05/21/17 08:59 General: No acute distress HEENT: Atraumatic Neck: Supple, no Thyromegaly - Procedures Procedures: Procedures Procedure Code Date INSERT PICC CATH [id number] 11/08/14 VENOUS CATHETERIZATION NEC 38.93 11/08/14 Assessment/Plan - Problem List Patient Problems: All Active Problems Flu-like symptoms (Acute) R68.89 PICC (peripherally inserted central catheter) removal (Acute) Z45.2 - Plan Plan: cpm Nutritional Asmnt/Malnutr-PDOC - Dietary Evaluation Malnutrition Findings (Please click <Entered> for more info): Nutritional Asmnt/Malnutrition Start: 03/22/17 11: 47 Text: Status: Complete Freq: Document 03/22/17 11:47 GSUN (Rec: 03/22/17 12:16 GSUN [email or web address]) Nutritional Asmnt/Malnutrition Patient General Information Nutritional Screening High Risk Screening Diagnosis HIV, PNA, protein calorie malnutrition, rspiratory insufficiency Pertinent Medical Hx/Surgical Hx HIV Subjective Information 61 year old male. Pt is on airborne isolation, RN Ramonita recommended disposable trays, explained to pt, FNS notified . Pt reported UBW 120lb, weight loss to CBW ~100lb due to poor PO intake from having oral thrush. Avg PO intake 95% of meals since adm, meeting nutritional needs. Discussed weight status with pt, encouraged meals, pt understood. RN denied nutritional concerns at this time. Pt stated good appetite. Pt appeared overall thin, no severe wasting noted. PT is edentulous, denied difficulties chewing/ swallowing. Current Diet Order/ Nutrition Support Regular Pertinent Medications Nacl 0.9% Pertinent Labs Reviewed. Nutritional Hx/Data Height 1.6 m Height (Calculated Centimeters) 160.0 Current Weight (lbs) 46.04 kg Weight (Calculated Kilograms) 46.0 Weight (Calculated Grams) 08792.6 Usual body Weight (lbs) 120 [place] Body Weight 124 Recent Weight Change Yes Weight Status Underweight GI Symptoms Food Allergies No Skin Integrity/Comment: [place] 18. Current %PO Good (75-100%) Estimated Nutritional Goals Calories/Kcals/Kg IBW 124lb/56.4kg Kcals Calculated 1692-1974kcal (30-35kcal/kg) Protein g/kg: IBW Protein Calculated 79-90g (1.4-1.6g/kg) Fluid: ml 1692-1974ml (1ml/kcal) Nutritional Problem 1. Problem Problem Increased kcal and prot needs related to Etiology hypermetabolic state, weight loss, weight status aeb Signs/Symptoms: pneumonia, HIV/AIDS, pt report UBW 120lb currently ~100lb, BMI <18.5 Intervention/Recommendation Comments 1. Continue with current diet order. Avg PO intake is adequate. 2. Monitor weight. Pt BMI <18. 5, UBW 120lb, recent weight loss due to poor PO related to oral thrush. 3. FNS will provide disposable trays. Expected Outcomes/Goals Expected Outcomes/Goals 1. PO intake conitnue to meet at least 75% of estimated nutritional needs.
[2017-03-22] MEDS: Azithromycin 500 MG in Sodium Chloride 0.9% 250 ML IV SCH (16:00)
[2017-03-22] MEDS ORDERED: Albuterol Nebulizer 2.5mg/3mL HHN SCH (21:00)
[2017-03-22] MEDS: Albuterol Nebulizer 2.5mg/3mL HHN PRN (21:04)
[2017-03-23] MEDS: SULFAMETHOXAZOLE IV SCH ×2 (05:22→19:51)
[2017-03-23] MEDS: DEXTROSE IV SCH ×2 (05:22→19:51)
[2017-03-23] MEDS: TMP IV SCH ×2 (05:22→19:51)
[2017-03-23] MEDS: Albuterol Nebulizer 2.5mg/3mL HHN PRN ×2 (06:59→10:43)
[2017-03-23] MEDS: cefTRIAXone 1 GM in Sodium Chloride 0.9% 50 ML IV SCH (08:39)
--- NOTE | 2017-03-23 10:26 | General Progress Note ---
Subjective - Review of Systems Events since last encounter: increased weakness loss of appetite Objective - Results Result Diagrams: 03/20/17 11:41 03/20/17 11:41 Recent Labs: Laboratory Last Values WBC 5.2 Th/cmm (4.8-10.8) D 03/20/17 11:41 RBC 4.13 Mil/cmm (4.30-5.70) L 03/20/17 11:41 Hgb 12.3 gm/dL (13.2-17.3) L 03/20/17 11:41 Hct 36.9 % (39.0-49.0) L D 03/20/17 11:41 MCV 89.3 fl (80-99) 03/20/17 11:41 MCH 29.7 pg (26.0-30.0) 03/20/17 11:41 MCHC Differential 33.2 pg (28.0-36.0) 03/20/17 11:41 RDW 14.8 % (11.5-20.0) 03/20/17 11:41 Plt Count 130 Th/cmm (150-400) L D 03/20/17 11:41 MPV 7.6 fl 03/20/17 11:41 Neutrophils % 75.6 % (40.0-80.0) 03/20/17 11:41 Lymphocytes % 15.7 % (20.0-50.0) L 03/20/17 11:41 Monocytes % 7.6 % (2.0-10.0) 03/20/17 11:41 Eosinophils % 0.6 % (0.0-5.0) 03/20/17 11:41 Basophils % 0.5 % (0.0-2.0) 03/20/17 11:41 PT 9.5 SECONDS (9.5-11.5) 03/20/17 11:41 INR 0.91 (0.5-1.4) 03/20/17 11:41 PTT (Actin FS) 32.1 SECONDS (26.0-38.0) 03/20/17 11:41 Specimen Source Arterial 03/21/17 06:00 Sample Site R-R 03/21/17 06:00 pH 7.44 (7.35-7.45) 03/21/17 06:00 pCO2 34.0 mmHg (35.0-45.0) L 03/21/17 06:00 pO2 82.0 mmHg (80.0-100.0) 03/21/17 06:00 HCO3 24.4 mEq/L (20.0-26.0) 03/21/17 06:00 Base Excess -0.6 mEq/L (-3.0-3.0) 03/21/17 06:00 O2 Saturation 96.0 % (92.0-100.0) 03/21/17 06:00 Jovan Test P 03/21/17 06:00 Vent Rate NA 03/21/17 06:00 Inspired O2 21 03/21/17 06:00 Tidal Volume NA 03/21/17 06:00 PEEP NA 03/21/17 06:00 Pressure (ins/psv/peep) NA 03/21/17 06:00 Critical Value RPINEIRA 03/21/17 06:00 Sodium 125 mEq/L (136-145) L 03/20/17 11:41 Potassium 3.4 mEq/L (3.5-5.1) L 03/20/17 11:41 Chloride 94 mEq/L (98-107) L 03/20/17 11:41 Carbon Dioxide 27.2 mEq/L (21.0-31.0) 03/20/17 11:41 Anion Gap 7.2 (7.0-16.0) 03/20/17 11:41 BUN 26 mg/dL (7-25) H 03/20/17 11:41 Creatinine 0.7 mg/dL (0.7-1.3) 03/20/17 11:41 Est GFR ( Amer) > 60.0 ml/min (>90) 03/20/17 11:41 Est GFR (Non-Af Amer) > 60.0 ml/min 03/20/17 11:41 BUN/Creatinine Ratio 37.1 03/20/17 11:41 Glucose 91 mg/dL (70-105) 03/20/17 11:41 Whole Bld Lactic Acid 1.05 mmol/L (0.60-1.99) 03/20/17 11:41 Calcium 9.0 mg/dL (8.6-10.3) 03/20/17 11:41 Total Bilirubin 0.7 mg/dL (0.3-1.0) 03/20/17 11:41 AST 33 U/L (13-39) 03/20/17 11:41 ALT 20 U/L (7-52) 03/20/17 11:41 Alkaline Phosphatase 66 U/L (34-104) 03/20/17 11:41 Lactate Dehydrogenase 99 U/L (140-271) L 03/21/17 06:15 Troponin I 0.01 ng/mL (0.01-0.05) 03/20/17 11:41 B-Natriuretic Peptide 40.0 pg/mL (5.0-100.0) 03/20/17 11:41 Total Protein 8.1 gm/dL (6.0-8.3) 03/20/17 11:41 Albumin 3.0 gm/dL (4.2-5.5) L 03/20/17 11:41 Globulin 5.1 gm/dL 03/20/17 11:41 Albumin/Globulin Ratio 0.6 (1.0-1.8) L 03/20/17 11:41 Urine Source CLEAN C 03/21/17 01:15 Urine Color YELLOW 03/21/17 01:15 Urine Clarity CLEAR (CLEAR) 03/21/17 01:15 Urine pH 6.0 03/21/17 01:15 Ur Specific [place] 1.020 (1.005-1.030) 03/21/17 01:15 Urine Protein TRACE mg/dL (NEGATIVE) 03/21/17 01:15 Urine Glucose (UA) NEGATIVE mg/dL (NEGATIVE) 03/21/17 01:15 Urine Ketones 15 mg/dL (NEGATIVE) H 03/21/17 01:15 Urine Blood TRACE (NEGATIVE) 03/21/17 01:15 Urine Nitrate NEGATIVE (NEGATIVE) 03/21/17 01:15 Urine Bilirubin NEGATIVE (NEGATIVE) 03/21/17 01:15 Urine Urobilinogen 4.0 E.U./dL (0.2 - 1.0) H 03/21/17 01:15 Ur Leukocyte Esterase NEGATIVE (NEGATIVE) 03/21/17 01:15 Urine RBC 0-2 /hpf (0-5) H 03/21/17 01:15 Urine WBC NONE SEEN /hpf (0-5) 03/21/17 01:15 Ur Epithelial Cells NONE SEEN /lpf (FEW) 03/21/17 01:15 Urine Bacteria NONE SEEN /hpf (NONE SEEN) 03/21/17 01:15 Absolute CD4 Count SEE REF. LAB REPORT 03/21/17 06:15 HIV 1&2 Antibody Screen POSITIVE (NEG) H 03/21/17 06:15 - Physical Exam Vitals and I&O: Vital Signs Temp 97.8 F 03/23/17 08:09 Pulse 101 03/23/17 08:09 Resp 18 03/23/17 08:09 BP 100/54 03/23/17 08:09 Pulse Ox 93 03/23/17 08:09 Intake & Output 03/22/17 03/23/17 03/23/17 18:59 06:59 18:59 Intake Total 768 264 280 Balance 768 264 280 Weight (lbs) 45.813 kg 44.996 kg 45.359 kg Intake: Intake, IV Amount 528 264 Sulfamethoxazole/TMP 14 528 264 ml In Dextrose 5% 250 ml @ 176 mls/hr IV Q8H [facility] Rx#:[id number] Oral 240 280 Other: # Voids 3 Active Medications: Current Medications Albuterol Sulfate (Albuterol 2.5mg/3ml Neb Ud) 2.5 mg HHN Q4H PRN PRN Reason: Cough Stop: 05/21/17 20:59 Last Admin: 03/23/17 06:59 Dose: 2.5 mg Azithromycin 500 mg/ Sodium (Chloride) 250 mls @ 250 mls/hr IV Q24HR [facility] Stop: 05/19/17 15:46 Last Admin: 03/22/17 16:00 Dose: 100 mls/hr Trimethoprim/Sulfamethoxazole (14 ml/ Dextrose) 264 mls @ 176 mls/hr IV Q8H [facility] Stop: 05/20/17 03:59 Last Admin: 03/23/17 05:22 Dose: 176 mls/hr Sodium Chloride (Nacl 0.9%) 1,000 mls @ 50 mls/hr IV .Q20H [facility] Stop: 05/20/17 21:30 Last Admin: 03/21/17 23:37 Dose: 50 mls/hr Ceftriaxone Sodium 1 gm/ (Sodium Chloride) 50 mls @ 100 mls/hr IV Q24HR [facility] Stop: 05/22/17 07:59 Last Admin: 03/23/17 08:39 Dose: 100 mls/hr Miscellaneous (Tenofovir Disoproxil Fumarate [Viread]) 300 mg PO DAILY [facility] Stop: 05/21/17 08:59 General: No acute distress HEENT: Atraumatic Neck: Supple - Procedures Procedures: Procedures Procedure Code Date INSERT PICC CATH 27132 11/08/14 VENOUS CATHETERIZATION NEC 38.93 11/08/14 Assessment/Plan - Problem List Patient Problems: All Active Problems Flu-like symptoms (Acute) R68.89 PICC (peripherally inserted central catheter) removal (Acute) Z45.2 - Assessment Assessment: hiv active on bacrim pnumonia malnutrition resp insufficeincy - Plan Plan: as per id Nutritional Asmnt/Malnutr-PDOC - Dietary Evaluation Malnutrition Findings (Please click <Entered> for more info): Nutritional Asmnt/Malnutrition Start: 03/22/17 11: 47 Text: Status: Complete Freq: Document 03/22/17 11:47 GSUN (Rec: 03/22/17 12:16 GSUN [place] [id number]) Nutritional Asmnt/Malnutrition Patient General Information Nutritional Screening High Risk Screening Diagnosis HIV, PNA, protein calorie malnutrition, rspiratory insufficiency Pertinent Medical Hx/Surgical Hx HIV Subjective Information 61 year old male. Pt is on airborne isolation, RN Ramonita recommended disposable trays, explained to pt, FNS notified . Pt reported UBW 120lb, weight loss to CBW ~100lb due to poor PO intake from having oral thrush. Avg PO intake 95% of meals since adm, meeting nutritional needs. Discussed weight status with pt, encouraged meals, pt understood. RN denied nutritional concerns at this time. Pt stated good appetite. Pt appeared overall thin, no severe wasting noted. PT is edentulous, denied difficulties chewing/ swallowing. Current Diet Order/ Nutrition Support Regular Pertinent Medications Nacl 0.9% Pertinent Labs Reviewed. Nutritional Hx/Data Height 1.6 m Height (Calculated Centimeters) 160.0 Current Weight (lbs) 46.04 kg Weight (Calculated Kilograms) 46.0 Weight (Calculated Grams) 18652.6 Usual body Weight (lbs) 120 [place] Body Weight 124 Recent Weight Change Yes Weight Status Underweight GI Symptoms Food Allergies No Skin Integrity/Comment: Malick 18. Current %PO Good (75-100%) Estimated Nutritional Goals Calories/Kcals/Kg IBW 124lb/56.4kg Kcals Calculated 1692-1974kcal (30-35kcal/kg) Protein g/kg: IBW Protein Calculated 79-90g (1.4-1.6g/kg) Fluid: ml 1692-1974ml (1ml/kcal) Nutritional Problem 1. Problem Problem Increased kcal and prot needs related to Etiology hypermetabolic state, weight loss, weight status aeb Signs/Symptoms: pneumonia, HIV/AIDS, pt report UBW 120lb currently ~100lb, BMI <18.5 Intervention/Recommendation Comments 1. Continue with current diet order. Avg PO intake is adequate. 2. Monitor weight. Pt BMI <18. 5, UBW 120lb, recent weight loss due to poor PO related to oral thrush. 3. FNS will provide disposable trays. Expected Outcomes/Goals Expected Outcomes/Goals 1. PO intake conitnue to meet at least 75% of estimated nutritional needs.
--- NOTE | 2017-03-23 11:52 | Infectious Disease Prog Note ---
Infectious Disease Subjective - Review of Systems Service Date: 03/23/17 Events since last encounter: None. Subjective: Comfortable,not in distress. Infectious Disease Objective - Results Result Diagrams: 03/20/17 11:41 03/20/17 11:41 Recent Labs: Laboratory Last Values WBC 5.2 Th/cmm (4.8-10.8) D 03/20/17 11:41 RBC 4.13 Mil/cmm (4.30-5.70) L 03/20/17 11:41 Hgb 12.3 gm/dL (13.2-17.3) L 03/20/17 11:41 Hct 36.9 % (39.0-49.0) L D 03/20/17 11:41 MCV 89.3 fl (80-99) 03/20/17 11:41 MCH 29.7 pg (26.0-30.0) 03/20/17 11:41 MCHC Differential 33.2 pg (28.0-36.0) 03/20/17 11:41 RDW 14.8 % (11.5-20.0) 03/20/17 11:41 Plt Count 130 Th/cmm (150-400) L D 03/20/17 11:41 MPV 7.6 fl 03/20/17 11:41 Neutrophils % 75.6 % (40.0-80.0) 03/20/17 11:41 Lymphocytes % 15.7 % (20.0-50.0) L 03/20/17 11:41 Monocytes % 7.6 % (2.0-10.0) 03/20/17 11:41 Eosinophils % 0.6 % (0.0-5.0) 03/20/17 11:41 Basophils % 0.5 % (0.0-2.0) 03/20/17 11:41 PT 9.5 SECONDS (9.5-11.5) 03/20/17 11:41 INR 0.91 (0.5-1.4) 03/20/17 11:41 PTT (Actin FS) 32.1 SECONDS (26.0-38.0) 03/20/17 11:41 Specimen Source Arterial 03/21/17 06:00 Sample Site R-R 03/21/17 06:00 pH 7.44 (7.35-7.45) 03/21/17 06:00 pCO2 34.0 mmHg (35.0-45.0) L 03/21/17 06:00 pO2 82.0 mmHg (80.0-100.0) 03/21/17 06:00 HCO3 24.4 mEq/L (20.0-26.0) 03/21/17 06:00 Base Excess -0.6 mEq/L (-3.0-3.0) 03/21/17 06:00 O2 Saturation 96.0 % (92.0-100.0) 03/21/17 06:00 Jovan Test P 03/21/17 06:00 Vent Rate NA 03/21/17 06:00 Inspired O2 21 03/21/17 06:00 Tidal Volume NA 03/21/17 06:00 PEEP NA 03/21/17 06:00 Pressure (ins/psv/peep) NA 03/21/17 06:00 Critical Value RPINEIRA 03/21/17 06:00 Sodium 125 mEq/L (136-145) L 03/20/17 11:41 Potassium 3.4 mEq/L (3.5-5.1) L 03/20/17 11:41 Chloride 94 mEq/L (98-107) L 03/20/17 11:41 Carbon Dioxide 27.2 mEq/L (21.0-31.0) 03/20/17 11:41 Anion Gap 7.2 (7.0-16.0) 03/20/17 11:41 BUN 26 mg/dL (7-25) H 03/20/17 11:41 Creatinine 0.7 mg/dL (0.7-1.3) 03/20/17 11:41 Est GFR ( Amer) > 60.0 ml/min (>90) 03/20/17 11:41 Est GFR (Non-Af Amer) > 60.0 ml/min 03/20/17 11:41 BUN/Creatinine Ratio 37.1 03/20/17 11:41 Glucose 91 mg/dL (70-105) 03/20/17 11:41 Whole Bld Lactic Acid 1.05 mmol/L (0.60-1.99) 03/20/17 11:41 Calcium 9.0 mg/dL (8.6-10.3) 03/20/17 11:41 Total Bilirubin 0.7 mg/dL (0.3-1.0) 03/20/17 11:41 AST 33 U/L (13-39) 03/20/17 11:41 ALT 20 U/L (7-52) 03/20/17 11:41 Alkaline Phosphatase 66 U/L (34-104) 03/20/17 11:41 Lactate Dehydrogenase 99 U/L (140-271) L 03/21/17 06:15 Troponin I 0.01 ng/mL (0.01-0.05) 03/20/17 11:41 B-Natriuretic Peptide 40.0 pg/mL (5.0-100.0) 03/20/17 11:41 Total Protein 8.1 gm/dL (6.0-8.3) 03/20/17 11:41 Albumin 3.0 gm/dL (4.2-5.5) L 03/20/17 11:41 Globulin 5.1 gm/dL 03/20/17 11:41 Albumin/Globulin Ratio 0.6 (1.0-1.8) L 03/20/17 11:41 Urine Source CLEAN C 03/21/17 01:15 Urine Color YELLOW 03/21/17 01:15 Urine Clarity CLEAR (CLEAR) 03/21/17 01:15 Urine pH 6.0 03/21/17 01:15 Ur Specific [place] 1.020 (1.005-1.030) 03/21/17 01:15 Urine Protein TRACE mg/dL (NEGATIVE) 03/21/17 01:15 Urine Glucose (UA) NEGATIVE mg/dL (NEGATIVE) 03/21/17 01:15 Urine Ketones 15 mg/dL (NEGATIVE) H 03/21/17 01:15 Urine Blood TRACE (NEGATIVE) 03/21/17 01:15 Urine Nitrate NEGATIVE (NEGATIVE) 03/21/17 01:15 Urine Bilirubin NEGATIVE (NEGATIVE) 03/21/17 01:15 Urine Urobilinogen 4.0 E.U./dL (0.2 - 1.0) H 03/21/17 01:15 Ur Leukocyte Esterase NEGATIVE (NEGATIVE) 03/21/17 01:15 Urine RBC 0-2 /hpf (0-5) H 03/21/17 01:15 Urine WBC NONE SEEN /hpf (0-5) 03/21/17 01:15 Ur Epithelial Cells NONE SEEN /lpf (FEW) 03/21/17 01:15 Urine Bacteria NONE SEEN /hpf (NONE SEEN) 03/21/17 01:15 Absolute CD4 Count SEE REF. LAB REPORT 03/21/17 06:15 HIV 1&2 Antibody Screen POSITIVE (NEG) H 03/21/17 06:15 - Physical Exam Vitals and I&O: Vital Signs Temp 97.8 F 03/23/17 08:09 Pulse 101 03/23/17 08:09 Resp 18 03/23/17 08:09 BP 100/54 03/23/17 08:09 Pulse Ox 93 03/23/17 08:09 Intake & Output 03/22/17 03/23/17 03/23/17 18:59 06:59 18:59 Intake Total 768 264 280 Balance 768 264 280 Weight (lbs) 45.813 kg 44.996 kg 45.359 kg Intake: Intake, IV Amount 528 264 Sulfamethoxazole/TMP 14 528 264 ml In Dextrose 5% 250 ml @ 176 mls/hr IV Q8H [facility] Rx#:[id number] Oral 240 280 Other: # Voids 3 Active Medications: Current Medications Albuterol Sulfate (Albuterol 2.5mg/3ml Neb Ud) 2.5 mg HHN Q4H PRN PRN Reason: Cough Stop: 05/21/17 20:59 Last Admin: 03/23/17 10:43 Dose: 2.5 mg Azithromycin 500 mg/ Sodium (Chloride) 250 mls @ 250 mls/hr IV Q24HR [facility] Stop: 05/19/17 15:46 Last Admin: 03/22/17 16:00 Dose: 100 mls/hr Trimethoprim/Sulfamethoxazole (14 ml/ Dextrose) 264 mls @ 176 mls/hr IV Q8H [facility] Stop: 05/20/17 03:59 Last Admin: 03/23/17 05:22 Dose: 176 mls/hr Sodium Chloride (Nacl 0.9%) 1,000 mls @ 50 mls/hr IV .Q20H [facility] Stop: 05/20/17 21:30 Last Admin: 03/21/17 23:37 Dose: 50 mls/hr Ceftriaxone Sodium 1 gm/ (Sodium Chloride) 50 mls @ 100 mls/hr IV Q24HR [facility] Stop: 05/22/17 07:59 Last Admin: 03/23/17 08:39 Dose: 100 mls/hr Miscellaneous (Tenofovir Disoproxil Fumarate [Viread]) 300 mg PO DAILY [facility] Stop: 05/21/17 08:59 General: no acute distress, cachectic HEENT: atraumatic, normocephalic, PERRLA, EOMI, moist mucous membrane Neck: supple, no thyromegaly, no rigid Cardiovascular: S1S2, regular Lungs: clear to percussion, crackles, no clear to auscultation bilaterally Abdomen: soft, no tender, no distended, no hepatomegaly, no splenomegaly, no ascites Extremities: no cyanosis, no clubbing, no edema Neurological: awake, alert, oriented Skin: intact, no rash, no subcutaneous nodules - Procedures Procedures: Procedures Procedure Code Date INSERT PICC CATH 82658 11/08/14 VENOUS CATHETERIZATION NEC 38.93 11/08/14 Infectious Disease Assmt/Plan - Problem List Patient Problems: All Active Problems Flu-like symptoms (Acute) R68.89 PICC (peripherally inserted central catheter) removal (Acute) Z45.2 - Assessment Assessment: Assessment/Plan: 1. HIV. Advanced CD 20 (5%). 2. RUL and RML Pneumonia. r/o TB, r/o PCP ( he was on bactrim prophylaxis), CAP. Atypical pneumonia. R/o malignancy 3. Protein Calorie malnutrition. 4. Respiratory insuffiiency. 5. Hyponatremia and hypokalemia. Abx, rocephin, zithromax. bactrim IV. Continue IV fluid. Change IV fluid to ns with kcl TB w/u. CT Scan Chest. Pulmonary consult for pneumonia and ? b'scopy. Prognosis is guarded. Nutritional Asmnt/Malnutr-PDOC - Dietary Evaluation Malnutrition Findings (Please click <Entered> for more info): Nutritional Asmnt/Malnutrition Start: 03/22/17 11: 47 Text: Status: Complete Freq: Document 03/22/17 11:47 GSUN (Rec: 03/22/17 12:16 GSUN [email or web address]) Nutritional Asmnt/Malnutrition Patient General Information Nutritional Screening High Risk Screening Diagnosis HIV, PNA, protein calorie malnutrition, rspiratory insufficiency Pertinent Medical Hx/Surgical Hx HIV Subjective Information 61 year old male. Pt is on airborne isolation, RN Ramonita recommended disposable trays, explained to pt, FNS notified . Pt reported UBW 120lb, weight loss to CBW ~100lb due to poor PO intake from having oral thrush. Avg PO intake 95% of meals since adm, meeting nutritional needs. Discussed weight status with pt, encouraged meals, pt understood. RN denied nutritional concerns at this time. Pt stated good appetite. Pt appeared overall thin, no severe wasting noted. PT is edentulous, denied difficulties chewing/ swallowing. Current Diet Order/ Nutrition Support Regular Pertinent Medications Nacl 0.9% Pertinent Labs Reviewed. Nutritional Hx/Data Height 1.6 m Height (Calculated Centimeters) 160.0 Current Weight (lbs) 46.04 kg Weight (Calculated Kilograms) 46.0 Weight (Calculated Grams) 19761.6 Usual body Weight (lbs) 120 [place] Body Weight 124 Recent Weight Change Yes Weight Status Underweight GI Symptoms Food Allergies No Skin Integrity/Comment: Malick 18. Current %PO Good (75-100%) Estimated Nutritional Goals Calories/Kcals/Kg IBW 124lb/56.4kg Kcals Calculated 1692-1974kcal (30-35kcal/kg) Protein g/kg: IBW Protein Calculated 79-90g (1.4-1.6g/kg) Fluid: ml 1692-1974ml (1ml/kcal) Nutritional Problem 1. Problem Problem Increased kcal and prot needs related to Etiology hypermetabolic state, weight loss, weight status aeb Signs/Symptoms: pneumonia, HIV/AIDS, pt report UBW 120lb currently ~100lb, BMI <18.5 Intervention/Recommendation Comments 1. Continue with current diet order. Avg PO intake is adequate. 2. Monitor weight. Pt BMI <18. 5, UBW 120lb, recent weight loss due to poor PO related to oral thrush. 3. FNS will provide disposable trays. Expected Outcomes/Goals Expected Outcomes/Goals 1. PO intake conitnue to meet at least 75% of estimated nutritional needs.
[2017-03-23] MEDS ORDERED: Sodium Chloride 0.9% 1,000 ML IV SCH (12:30)
[2017-03-23] MEDS ORDERED: 0.9% NS w/20 mEq KCL 1,000 ML IV SCH (12:36)
[2017-03-23] MEDS ORDERED: SODIUM CHLORIDE FOR INHALATION HHN ONE (14:58)
[2017-03-23] MEDS: SODIUM CHLORIDE 3% INH PRN ×2 (16:00→18:45)
[2017-03-23] MEDS: Azithromycin 500 MG in Sodium Chloride 0.9% 250 ML IV SCH (16:48)
[2017-03-24] MEDS: TMP IV SCH (04:38)
[2017-03-24] MEDS: DEXTROSE IV SCH (04:38)
[2017-03-24] MEDS: SULFAMETHOXAZOLE IV SCH (04:38)
[2017-03-24] MEDS: cefTRIAXone 1 GM in Sodium Chloride 0.9% 50 ML IV SCH (08:22)
--- NOTE | 2017-03-24 09:15 | General Progress Note ---
Subjective - Review of Systems Events since last encounter: no distress Objective - Results Result Diagrams: 03/20/17 11:41 03/20/17 11:41 Recent Labs: Laboratory Last Values WBC 5.2 Th/cmm (4.8-10.8) D 03/20/17 11:41 RBC 4.13 Mil/cmm (4.30-5.70) L 03/20/17 11:41 Hgb 12.3 gm/dL (13.2-17.3) L 03/20/17 11:41 Hct 36.9 % (39.0-49.0) L D 03/20/17 11:41 MCV 89.3 fl (80-99) 03/20/17 11:41 MCH 29.7 pg (26.0-30.0) 03/20/17 11:41 MCHC Differential 33.2 pg (28.0-36.0) 03/20/17 11:41 RDW 14.8 % (11.5-20.0) 03/20/17 11:41 Plt Count 130 Th/cmm (150-400) L D 03/20/17 11:41 MPV 7.6 fl 03/20/17 11:41 Neutrophils % 75.6 % (40.0-80.0) 03/20/17 11:41 Lymphocytes % 15.7 % (20.0-50.0) L 03/20/17 11:41 Monocytes % 7.6 % (2.0-10.0) 03/20/17 11:41 Eosinophils % 0.6 % (0.0-5.0) 03/20/17 11:41 Basophils % 0.5 % (0.0-2.0) 03/20/17 11:41 PT 9.5 SECONDS (9.5-11.5) 03/20/17 11:41 INR 0.91 (0.5-1.4) 03/20/17 11:41 PTT (Actin FS) 32.1 SECONDS (26.0-38.0) 03/20/17 11:41 Specimen Source Arterial 03/21/17 06:00 Sample Site R-R 03/21/17 06:00 pH 7.44 (7.35-7.45) 03/21/17 06:00 pCO2 34.0 mmHg (35.0-45.0) L 03/21/17 06:00 pO2 82.0 mmHg (80.0-100.0) 03/21/17 06:00 HCO3 24.4 mEq/L (20.0-26.0) 03/21/17 06:00 Base Excess -0.6 mEq/L (-3.0-3.0) 03/21/17 06:00 O2 Saturation 96.0 % (92.0-100.0) 03/21/17 06:00 Jovan Test P 03/21/17 06:00 Vent Rate NA 03/21/17 06:00 Inspired O2 21 03/21/17 06:00 Tidal Volume NA 03/21/17 06:00 PEEP NA 03/21/17 06:00 Pressure (ins/psv/peep) NA 03/21/17 06:00 Critical Value RPINEIRA 03/21/17 06:00 Sodium 125 mEq/L (136-145) L 03/20/17 11:41 Potassium 3.4 mEq/L (3.5-5.1) L 03/20/17 11:41 Chloride 94 mEq/L (98-107) L 03/20/17 11:41 Carbon Dioxide 27.2 mEq/L (21.0-31.0) 03/20/17 11:41 Anion Gap 7.2 (7.0-16.0) 03/20/17 11:41 BUN 26 mg/dL (7-25) H 03/20/17 11:41 Creatinine 0.7 mg/dL (0.7-1.3) 03/20/17 11:41 Est GFR ( Amer) > 60.0 ml/min (>90) 03/20/17 11:41 Est GFR (Non-Af Amer) > 60.0 ml/min 03/20/17 11:41 BUN/Creatinine Ratio 37.1 03/20/17 11:41 Glucose 91 mg/dL (70-105) 03/20/17 11:41 Whole Bld Lactic Acid 1.05 mmol/L (0.60-1.99) 03/20/17 11:41 Calcium 9.0 mg/dL (8.6-10.3) 03/20/17 11:41 Total Bilirubin 0.7 mg/dL (0.3-1.0) 03/20/17 11:41 AST 33 U/L (13-39) 03/20/17 11:41 ALT 20 U/L (7-52) 03/20/17 11:41 Alkaline Phosphatase 66 U/L (34-104) 03/20/17 11:41 Lactate Dehydrogenase 99 U/L (140-271) L 03/21/17 06:15 Troponin I 0.01 ng/mL (0.01-0.05) 03/20/17 11:41 B-Natriuretic Peptide 40.0 pg/mL (5.0-100.0) 03/20/17 11:41 Total Protein 8.1 gm/dL (6.0-8.3) 03/20/17 11:41 Albumin 3.0 gm/dL (4.2-5.5) L 03/20/17 11:41 Globulin 5.1 gm/dL 03/20/17 11:41 Albumin/Globulin Ratio 0.6 (1.0-1.8) L 03/20/17 11:41 Urine Source CLEAN C 03/21/17 01:15 Urine Color YELLOW 03/21/17 01:15 Urine Clarity CLEAR (CLEAR) 03/21/17 01:15 Urine pH 6.0 03/21/17 01:15 Ur Specific [place] 1.020 (1.005-1.030) 03/21/17 01:15 Urine Protein TRACE mg/dL (NEGATIVE) 03/21/17 01:15 Urine Glucose (UA) NEGATIVE mg/dL (NEGATIVE) 03/21/17 01:15 Urine Ketones 15 mg/dL (NEGATIVE) H 03/21/17 01:15 Urine Blood TRACE (NEGATIVE) 03/21/17 01:15 Urine Nitrate NEGATIVE (NEGATIVE) 03/21/17 01:15 Urine Bilirubin NEGATIVE (NEGATIVE) 03/21/17 01:15 Urine Urobilinogen 4.0 E.U./dL (0.2 - 1.0) H 03/21/17 01:15 Ur Leukocyte Esterase NEGATIVE (NEGATIVE) 03/21/17 01:15 Urine RBC 0-2 /hpf (0-5) H 03/21/17 01:15 Urine WBC NONE SEEN /hpf (0-5) 03/21/17 01:15 Ur Epithelial Cells NONE SEEN /lpf (FEW) 03/21/17 01:15 Urine Bacteria NONE SEEN /hpf (NONE SEEN) 03/21/17 01:15 Absolute CD4 Count SEE REF. LAB REPORT 03/21/17 06:15 Cryptococcus Ag NEGATIVE 03/21/17 06:15 HIV 1&2 Antibody Screen POSITIVE (NEG) H 03/21/17 06:15 Ur L.pneumophila Ag Negative (Negative) 03/21/17 01:15 Mycoplasma pneumon IgG <100 U/mL (0-99) 03/21/17 06:15 Mycoplasma pneumon IgM <770 U/mL (0-769) 03/21/17 06:15 - Physical Exam Vitals and I&O: Vital Signs Temp 98.3 F 03/24/17 08:00 Pulse 84 03/24/17 08:00 Resp 18 03/24/17 08:00 BP 110/56 03/24/17 08:00 Pulse Ox 94 03/24/17 08:00 Intake & Output 03/23/17 03/24/17 03/24/17 18:59 06:59 18:59 Intake Total 330 624 Balance 330 624 Weight (lbs) 45.359 kg 45.631 kg Intake: Intake, IV Amount 50 264 Sulfamethoxazole/TMP 14 264 ml In Dextrose 5% 250 ml @ 176 mls/hr IV Q8H [facility] Rx#:[id number] cefTRIAXone 1 gm In 50 Sodium Chloride 0.9% 50 ml @ 100 mls/hr IV Q24HR [facility] Rx#:[id number] Oral 280 360 Other: # Voids 3 Active Medications: Current Medications Albuterol Sulfate (Albuterol 2.5mg/3ml Neb Ud) 2.5 mg HHN Q4H PRN PRN Reason: Cough Stop: 05/21/17 20:59 Last Admin: 03/23/17 10:43 Dose: 2.5 mg Azithromycin 500 mg/ Sodium (Chloride) 250 mls @ 250 mls/hr IV Q24HR [facility] Stop: 05/19/17 15:46 Last Admin: 03/23/17 16:48 Dose: 100 mls/hr Trimethoprim/Sulfamethoxazole (14 ml/ Dextrose) 264 mls @ 176 mls/hr IV Q8H [facility] Stop: 05/20/17 03:59 Last Admin: 03/24/17 04:38 Dose: 176 mls/hr Ceftriaxone Sodium 1 gm/ (Sodium Chloride) 50 mls @ 100 mls/hr IV Q24HR [facility] Stop: 05/22/17 07:59 Last Admin: 03/24/17 08:22 Dose: 100 mls/hr Potassium Chloride/Sodium Chloride (0.9% Ns W/20 Meq Kcl) 1,000 mls @ 50 mls/ hr IV .Q20H [facility] Stop: 05/22/17 12:35 Last Admin: 03/23/17 15:13 Dose: 50 mls/hr Miscellaneous (Tenofovir Disoproxil Fumarate [Viread]) 300 mg PO DAILY [facility] Stop: 05/21/17 08:59 Miscellaneous (Misc Inhaler) 1 inh INH BIDRT PRN PRN Reason: SPUTUM COLLECTION Stop: 03/26/17 15:04 Last Admin: 03/23/17 18:45 Dose: 1 inh General: No acute distress HEENT: Atraumatic Cardiovascular: Regular rate, Normal S1, Normal S2 - Procedures Procedures: Procedures Procedure Code Date INSERT PICC CATH [id number] 11/08/14 VENOUS CATHETERIZATION NEC 38.93 11/08/14 Assessment/Plan - Problem List Patient Problems: All Active Problems Flu-like symptoms (Acute) R68.89 PICC (peripherally inserted central catheter) removal (Acute) Z45.2 - Assessment Assessment: hiv active on bacrim pnumonia malnutrition resp insufficeincy - Plan Plan: as per id Nutritional Asmnt/Malnutr-PDOC - Dietary Evaluation Malnutrition Findings (Please click <Entered> for more info): Nutritional Asmnt/Malnutrition Start: 03/22/17 11: 47 Text: Status: Complete Freq: Document 03/22/17 11:47 GSUN (Rec: 03/22/17 12:16 GSUN [email or web address]) Nutritional Asmnt/Malnutrition Patient General Information Nutritional Screening High Risk Screening Diagnosis HIV, PNA, protein calorie malnutrition, rspiratory insufficiency Pertinent Medical Hx/Surgical Hx HIV Subjective Information 61 year old male. Pt is on airborne isolation, ALESIA Shipman recommended disposable trays, explained to pt, FNS notified . Pt reported UBW 120lb, weight loss to CBW ~100lb due to poor PO intake from having oral thrush. Avg PO intake 95% of meals since adm, meeting nutritional needs. Discussed weight status with pt, encouraged meals, pt understood. RN denied nutritional concerns at this time. Pt stated good appetite. Pt appeared overall thin, no severe wasting noted. PT is edentulous, denied difficulties chewing/ swallowing. Current Diet Order/ Nutrition Support Regular Pertinent Medications Nacl 0.9% Pertinent Labs Reviewed. Nutritional Hx/Data Height 1.6 m Height (Calculated Centimeters) 160.0 Current Weight (lbs) 46.04 kg Weight (Calculated Kilograms) 46.0 Weight (Calculated Grams) 54638.6 Usual body Weight (lbs) 120 [place] Body Weight 124 Recent Weight Change Yes Weight Status Underweight GI Symptoms Food Allergies No Skin Integrity/Comment: Malick 18. Current %PO Good (75-100%) Estimated Nutritional Goals Calories/Kcals/Kg IBW 124lb/56.4kg Kcals Calculated 1692-1974kcal (30-35kcal/kg) Protein g/kg: IBW Protein Calculated 79-90g (1.4-1.6g/kg) Fluid: ml 1692-1974ml (1ml/kcal) Nutritional Problem 1. Problem Problem Increased kcal and prot needs related to Etiology hypermetabolic state, weight loss, weight status aeb Signs/Symptoms: pneumonia, HIV/AIDS, pt report UBW 120lb currently ~100lb, BMI <18.5 Intervention/Recommendation Comments 1. Continue with current diet order. Avg PO intake is adequate. 2. Monitor weight. Pt BMI <18. 5, UBW 120lb, recent weight loss due to poor PO related to oral thrush. 3. FNS will provide disposable trays. Expected Outcomes/Goals Expected Outcomes/Goals 1. PO intake conitnue to meet at least 75% of estimated nutritional needs.
[2017-03-24] MEDS: SODIUM CHLORIDE 3% INH PRN (09:58)
--- NOTE | 2017-03-24 11:40 | Diagnostic Imaging Report ---
CT Chest without IV contrast HISTORY: Pneumonia COMPARISON: Chest x-ray 03/21/[address] chest on 11/10/2014. Technique: Axial images were obtained from the base of the neck to the upper abdomen without IV contrast. Reconstructions were made. Total DLP 174, CTD I 4.3 Findings: Assessment of mediastinum is limited due to lack of IV contrast. No evidence of mediastinal lymphadenopathy. Mild atherosclerotic vascular disease is noted. Heart size normal. No evidence of pericardial effusion. There are extensive emphysematous changes throughout the lungs there are extensive right upper lobe infiltrates with cystic changes. Additional mild focal infiltrates are seen throughout the right lower lobe. Small right effusion is noted. Mild atelectatic changes of the lungs are noted. There is a 5 mm nodular opacity along the right lower lobe pleural border. The upper abdomen demonstrates moderate amount of stool. Degenerative changes of the spine are noted with spinal scoliosis. IMPRESSION: Extensive right upper lobe infiltrates. Additional few patchy right lower lobe infiltrates are also noted. Extensive emphysematous lung changes are also noted. Small right effusion. 5 mm nodular opacity along the right lower lobe border. Similar findings were seen on prior exam on 11/10/2014. Findings may be due to infectious or inflammatory etiology. Continued follow-up surveillance may be obtained if indicated. Mild atherosclerotic vascular disease.
--- NOTE | 2017-03-24 12:03 | Infectious Disease Prog Note ---
Infectious Disease Subjective - Review of Systems Service Date: 03/24/17 Subjective: Comfortable,not in distress. Patient wanted to sign AMA. Infectious Disease Objective - Results Result Diagrams: 03/20/17 11:41 03/20/17 11:41 Recent Labs: Laboratory Last Values WBC 5.2 Th/cmm (4.8-10.8) D 03/20/17 11:41 RBC 4.13 Mil/cmm (4.30-5.70) L 03/20/17 11:41 Hgb 12.3 gm/dL (13.2-17.3) L 03/20/17 11:41 Hct 36.9 % (39.0-49.0) L D 03/20/17 11:41 MCV 89.3 fl (80-99) 03/20/17 11:41 MCH 29.7 pg (26.0-30.0) 03/20/17 11:41 MCHC Differential 33.2 pg (28.0-36.0) 03/20/17 11:41 RDW 14.8 % (11.5-20.0) 03/20/17 11:41 Plt Count 130 Th/cmm (150-400) L D 03/20/17 11:41 MPV 7.6 fl 03/20/17 11:41 Neutrophils % 75.6 % (40.0-80.0) 03/20/17 11:41 Lymphocytes % 15.7 % (20.0-50.0) L 03/20/17 11:41 Monocytes % 7.6 % (2.0-10.0) 03/20/17 11:41 Eosinophils % 0.6 % (0.0-5.0) 03/20/17 11:41 Basophils % 0.5 % (0.0-2.0) 03/20/17 11:41 PT 9.5 SECONDS (9.5-11.5) 03/20/17 11:41 INR 0.91 (0.5-1.4) 03/20/17 11:41 PTT (Actin FS) 32.1 SECONDS (26.0-38.0) 03/20/17 11:41 Specimen Source Arterial 03/21/17 06:00 Sample Site R-R 03/21/17 06:00 pH 7.44 (7.35-7.45) 03/21/17 06:00 pCO2 34.0 mmHg (35.0-45.0) L 03/21/17 06:00 pO2 82.0 mmHg (80.0-100.0) 03/21/17 06:00 HCO3 24.4 mEq/L (20.0-26.0) 03/21/17 06:00 Base Excess -0.6 mEq/L (-3.0-3.0) 03/21/17 06:00 O2 Saturation 96.0 % (92.0-100.0) 03/21/17 06:00 Jovan Test P 03/21/17 06:00 Vent Rate NA 03/21/17 06:00 Inspired O2 21 03/21/17 06:00 Tidal Volume NA 03/21/17 06:00 PEEP NA 03/21/17 06:00 Pressure (ins/psv/peep) NA 03/21/17 06:00 Critical Value RPINEIRA 03/21/17 06:00 Sodium 125 mEq/L (136-145) L 03/20/17 11:41 Potassium 3.4 mEq/L (3.5-5.1) L 03/20/17 11:41 Chloride 94 mEq/L (98-107) L 03/20/17 11:41 Carbon Dioxide 27.2 mEq/L (21.0-31.0) 03/20/17 11:41 Anion Gap 7.2 (7.0-16.0) 03/20/17 11:41 BUN 26 mg/dL (7-25) H 03/20/17 11:41 Creatinine 0.7 mg/dL (0.7-1.3) 03/20/17 11:41 Est GFR ( Amer) > 60.0 ml/min (>90) 03/20/17 11:41 Est GFR (Non-Af Amer) > 60.0 ml/min 03/20/17 11:41 BUN/Creatinine Ratio 37.1 03/20/17 11:41 Glucose 91 mg/dL (70-105) 03/20/17 11:41 Whole Bld Lactic Acid 1.05 mmol/L (0.60-1.99) 03/20/17 11:41 Calcium 9.0 mg/dL (8.6-10.3) 03/20/17 11:41 Total Bilirubin 0.7 mg/dL (0.3-1.0) 03/20/17 11:41 AST 33 U/L (13-39) 03/20/17 11:41 ALT 20 U/L (7-52) 03/20/17 11:41 Alkaline Phosphatase 66 U/L (34-104) 03/20/17 11:41 Lactate Dehydrogenase 99 U/L (140-271) L 03/21/17 06:15 Troponin I 0.01 ng/mL (0.01-0.05) 03/20/17 11:41 B-Natriuretic Peptide 40.0 pg/mL (5.0-100.0) 03/20/17 11:41 Total Protein 8.1 gm/dL (6.0-8.3) 03/20/17 11:41 Albumin 3.0 gm/dL (4.2-5.5) L 03/20/17 11:41 Globulin 5.1 gm/dL 03/20/17 11:41 Albumin/Globulin Ratio 0.6 (1.0-1.8) L 03/20/17 11:41 Urine Source CLEAN C 03/21/17 01:15 Urine Color YELLOW 03/21/17 01:15 Urine Clarity CLEAR (CLEAR) 03/21/17 01:15 Urine pH 6.0 03/21/17 01:15 Ur Specific [place] 1.020 (1.005-1.030) 03/21/17 01:15 Urine Protein TRACE mg/dL (NEGATIVE) 03/21/17 01:15 Urine Glucose (UA) NEGATIVE mg/dL (NEGATIVE) 03/21/17 01:15 Urine Ketones 15 mg/dL (NEGATIVE) H 03/21/17 01:15 Urine Blood TRACE (NEGATIVE) 03/21/17 01:15 Urine Nitrate NEGATIVE (NEGATIVE) 03/21/17 01:15 Urine Bilirubin NEGATIVE (NEGATIVE) 03/21/17 01:15 Urine Urobilinogen 4.0 E.U./dL (0.2 - 1.0) H 03/21/17 01:15 Ur Leukocyte Esterase NEGATIVE (NEGATIVE) 03/21/17 01:15 Urine RBC 0-2 /hpf (0-5) H 03/21/17 01:15 Urine WBC NONE SEEN /hpf (0-5) 03/21/17 01:15 Ur Epithelial Cells NONE SEEN /lpf (FEW) 03/21/17 01:15 Urine Bacteria NONE SEEN /hpf (NONE SEEN) 03/21/17 01:15 Absolute CD4 Count SEE REF. LAB REPORT 03/21/17 06:15 Cryptococcus Ag NEGATIVE 03/21/17 06:15 HIV 1&2 Antibody Screen POSITIVE (NEG) H 03/21/17 06:15 Ur L.pneumophila Ag Negative (Negative) 03/21/17 01:15 Mycoplasma pneumon IgG <100 U/mL (0-99) 03/21/17 06:15 Mycoplasma pneumon IgM <770 U/mL (0-769) 03/21/17 06:15 - Physical Exam Vitals and I&O: Vital Signs Temp 98.6 F 03/24/17 11:39 Pulse 82 03/24/17 11:39 Resp 18 03/24/17 11:39 BP 105/59 03/24/17 11:39 Pulse Ox 95 03/24/17 11:39 Intake & Output 03/23/17 03/24/17 03/24/17 18:59 06:59 18:59 Intake Total 330 624 Balance 330 624 Weight (lbs) 45.359 kg 45.631 kg Intake: Intake, IV Amount 50 264 Sulfamethoxazole/TMP 14 264 ml In Dextrose 5% 250 ml @ 176 mls/hr IV Q8H [facility] Rx#:[id number] cefTRIAXone 1 gm In 50 Sodium Chloride 0.9% 50 ml @ 100 mls/hr IV Q24HR [facility] Rx#:[id number] Oral 280 360 Other: # Voids 3 Active Medications: Current Medications Albuterol Sulfate (Albuterol 2.5mg/3ml Neb Ud) 2.5 mg HHN Q4H PRN PRN Reason: Cough Stop: 05/21/17 20:59 Last Admin: 03/23/17 10:43 Dose: 2.5 mg Azithromycin 500 mg/ Sodium (Chloride) 250 mls @ 250 mls/hr IV Q24HR [facility] Stop: 05/19/17 15:46 Last Admin: 03/23/17 16:48 Dose: 100 mls/hr Trimethoprim/Sulfamethoxazole (14 ml/ Dextrose) 264 mls @ 176 mls/hr IV Q8H [facility] Stop: 05/20/17 03:59 Last Admin: 03/24/17 04:38 Dose: 176 mls/hr Ceftriaxone Sodium 1 gm/ (Sodium Chloride) 50 mls @ 100 mls/hr IV Q24HR [facility] Stop: 05/22/17 07:59 Last Admin: 03/24/17 08:22 Dose: 100 mls/hr Potassium Chloride/Sodium Chloride (0.9% Ns W/20 Meq Kcl) 1,000 mls @ 50 mls/ hr IV .Q20H [facility] Stop: 05/22/17 12:35 Last Admin: 03/23/17 15:13 Dose: 50 mls/hr Miscellaneous (Tenofovir Disoproxil Fumarate [Viread]) 300 mg PO DAILY [facility] Stop: 05/21/17 08:59 Miscellaneous (Misc Inhaler) 1 inh INH BIDRT PRN PRN Reason: SPUTUM COLLECTION Stop: 03/26/17 15:04 Last Admin: 03/24/17 09:58 Dose: 1 inh General: no acute distress, cachectic HEENT: atraumatic, normocephalic, PERRLA Neck: supple, no thyromegaly, no lymphadenopathy, no rigid, no tracheostomy Cardiovascular: S1S2, regular Lungs: clear to percussion, crackles, rhonchi Abdomen: soft, bowel sounds, no tender, no distended, no rebound, no guarding Extremities: no cyanosis, no clubbing, no edema Neurological: awake, alert, oriented, CN 2-12 intact Skin: intact - Procedures Procedures: Procedures Procedure Code Date INSERT PICC CATH 84498 11/08/14 VENOUS CATHETERIZATION NEC 38.93 11/08/14 Infectious Disease Assmt/Plan - Problem List Patient Problems: All Active Problems Flu-like symptoms (Acute) R68.89 PICC (peripherally inserted central catheter) removal (Acute) Z45.2 - Assessment Assessment: Assessment/Plan: 1. HIV. Advanced CD4 20 (5%). 2. RUL and RML Pneumonia. r/o TB, r/o PCP ( he was on bactrim prophylaxis), CAP. Atypical pneumonia. R/o malignancy 3. Protein Calorie malnutrition. 4. Respiratory insuffiiency. 5. Hyponatremia and hypokalemia. Abx, rocephin, zithromax. bactrim IV. Continue IV fluid. Change IV fluid to ns with kcl TB w/u. CT Scan Chest reviewed. Pulmonary consult for pneumonia and ? b'scopy. Prognosis is guarded. Nutritional Asmnt/Malnutr-PDOC - Dietary Evaluation Malnutrition Findings (Please click <Entered> for more info): Nutritional Asmnt/Malnutrition Start: 03/22/17 11: 47 Text: Status: Complete Freq: Document 03/22/17 11:47 GSUN (Rec: 03/22/17 12:16 GSUN [email or web address]) Nutritional Asmnt/Malnutrition Patient General Information Nutritional Screening High Risk Screening Diagnosis HIV, PNA, protein calorie malnutrition, rspiratory insufficiency Pertinent Medical Hx/Surgical Hx HIV Subjective Information 61 year old male. Pt is on airborne isolation, ALESIA Shipman recommended disposable trays, explained to pt, FNS notified . Pt reported UBW 120lb, weight loss to CBW ~100lb due to poor PO intake from having oral thrush. Avg PO intake 95% of meals since adm, meeting nutritional needs. Discussed weight status with pt, encouraged meals, pt understood. RN denied nutritional concerns at this time. Pt stated good appetite. Pt appeared overall thin, no severe wasting noted. PT is edentulous, denied difficulties chewing/ swallowing. Current Diet Order/ Nutrition Support Regular Pertinent Medications Nacl 0.9% Pertinent Labs Reviewed. Nutritional Hx/Data Height 1.6 m Height (Calculated Centimeters) 160.0 Current Weight (lbs) 46.04 kg Weight (Calculated Kilograms) 46.0 Weight (Calculated Grams) 99046.6 Usual body Weight (lbs) 120 [place] Body Weight 124 Recent Weight Change Yes Weight Status Underweight GI Symptoms Food Allergies No Skin Integrity/Comment: [place] 18. Current %PO Good (75-100%) Estimated Nutritional Goals Calories/Kcals/Kg IBW 124lb/56.4kg Kcals Calculated 1692-1974kcal (30-35kcal/kg) Protein g/kg: IBW Protein Calculated 79-90g (1.4-1.6g/kg) Fluid: ml 1692-1974ml (1ml/kcal) Nutritional Problem 1. Problem Problem Increased kcal and prot needs related to Etiology hypermetabolic state, weight loss, weight status aeb Signs/Symptoms: pneumonia, HIV/AIDS, pt report UBW 120lb currently ~100lb, BMI <18.5 Intervention/Recommendation Comments 1. Continue with current diet order. Avg PO intake is adequate. 2. Monitor weight. Pt BMI <18. 5, UBW 120lb, recent weight loss due to poor PO related to oral thrush. 3. FNS will provide disposable trays. Expected Outcomes/Goals Expected Outcomes/Goals 1. PO intake conitnue to meet at least 75% of estimated nutritional needs.
== END 2017-03-24 13:55 | disposition left against medical advice (07) | DRG 975 ==
LOC: ER 11:00 → MSI 14:55 → TELE 03-21 04:00
PROVIDERS: ADMIT Internal Medicine; ATTEND Internal Medicine
DX: B20 Human immunodeficiency virus [HIV] disease (principal); A41.9 Sepsis, unspecified organism; E46 Unspecified protein-calorie malnutrition; J18.1 Lobar pneumonia, unspecified organism; Z68.1 Body mass index [BMI] 19.9 or less, adult; E87.1 Hypo-osmolality and hyponatremia; R06.89 Other abnormalities of breathing; G62.9 Polyneuropathy, unspecified; E87.6 Hypokalemia; Z83.3 Family history of diabetes mellitus; Z79.899 Other long term (current) drug therapy; Z87.891 Personal history of nicotine dependence
CPT/HCPCS: 36415-UA; 36600-90; 71010-TC; 71250-TC; 80053-TC; 81001-TC; 82803-TC; 83605; 83615-TC; 83880-TC; 84484-TC; 85025-TC; 85610-TC; 85730-TC; 86361-90; 86403-90; 86480-90; 86635-90; 86689-90; 86703-TC; 86738-90; 87070; 87206-90; 87449-90; 87556-90; 87899-90; 90799; 93005; 94640; 94760; 96375; J0456; J0696; J2930; J3480; J7030; J7040; J7613; Z7502; Z7610